=== PATIENT | female | born 1990 | race American Indian/Alaskan Native ===

== ENCOUNTER 2017-09-12 12:43 | Emergency (ER) | payer OTHER ==
[2017-09-12 13:19] VITALS: BP 134/83
[2017-09-12 14:06] LABS: Basophils % (Auto) 0.4 % (0.0-1.8); Eosinophils % (Auto) 4.2 % (0.0-4.3); Hematocrit 36.7 % (30.3-42.9); Hemoglobin 12.2 gm/dl (10.1-14.3); Mean Corpuscular HGB Conc 33 % (30-34); Mean Corpuscular Hemoglobin 29 pg (28-32); Mean Corpuscular Volume 87 fl (79-97); Platelet Count 296 K/mm3 (140-440); Red Blood Count 4.24 M/mm3 (3.65-5.03); Red Cell Distribution Width 15.7 % (13.2-15.2); White Blood Count 7.6 K/mm3 (4.5-11.0)
[2017-09-12] MEDS ORDERED: MOTRIN PO ONE (14:32)
[2017-09-12] MEDS ORDERED: KEFLEX PO ONE (14:33)
[2017-09-12] MEDS ORDERED: TYLENOL PO ONE (14:33)
--- NOTE | 2017-09-12 15:29 | Emergency Department Report ---
ED General Adult HPI - General Chief complaint: Skin/Abscess/Foreign Body Stated complaint: INSECT BITE LEFT LEG Time Seen by Provider: 09/12/17 14:07 Source: patient Mode of arrival: Ambulatory Limitations: No Limitations - History of Present Illness Initial comments: She is a 27-year-old female no significant past history who presents with left leg pain. Has been going on for the last 3 days. Patient states pain is a 7 out of 10 walking makes it worse and nothing makes it better. As an achy type of pain that does not radiate. She noticed that the pain occurred when she woke up and there is a red area with no swelling but tenderness to palpation. Patient denies having any fevers or chills any nausea or vomiting. Patient denies any trauma to the area but she states before the night it happened she was scratching her leg a lot. Patient states the rash hasn't gotten progressively worse and there is no fluid or abscess from the rash. Severity scale (0 -10): 7 - Related Data Previous Rx's Medication Instructions Recorded Last Taken Type Azithromycin [Zmax] 2 gm PO ONCE #60 ml 11/24/15 Unknown Rx Brompheniramine/Pseudoephed/Dm 10 ml PO Q4HR PRN #120 syrup 11/24/15 Unknown Rx [Bromfed Dm Cough Syrup] Ibuprofen [Motrin 800 MG tab] 800 mg PO Q8HR PRN #30 tablet 11/24/15 Unknown Rx Cephalexin [Keflex] 500 mg PO Q12HR #10 cap 09/12/17 Unknown Rx Diclofenac Sodium [Voltaren] 100 gm TP Q6HR #1 gel..gram. 09/12/17 Unknown Rx Allergies Allergy/AdvReac Type Severity Reaction Status Date / Time No Known Allergies Allergy Verified 09/12/17 13:11 ED Review of Systems ROS: Stated complaint: INSECT BITE LEFT LEG Other details as noted in HPI Constitutional: denies: chills, fever Eyes: denies: eye pain, eye discharge, vision change ENT: denies: ear pain, throat pain Respiratory: denies: cough, shortness of breath, wheezing Cardiovascular: denies: chest pain, palpitations Endocrine: no symptoms reported Gastrointestinal: denies: abdominal pain, nausea, diarrhea Genitourinary: denies: urgency, dysuria, discharge Musculoskeletal: denies: back pain, joint swelling, arthralgia Skin: as per HPI, rash. denies: lesions Neurological: denies: headache, weakness, paresthesias Psychiatric: denies: anxiety, depression Hematological/Lymphatic: denies: easy bleeding, easy bruising ED Past Medical Hx - Past Medical History Previous Medical History?: Yes Hx Asthma: Yes Additional medical history: OBESITY - Surgical History Past Surgical History?: Yes Hx Cholecystectomy: Yes - Social History Smoking Status: Never Smoker Substance Use Type: None - Medications Home Medications: Home Medications Medication Instructions Recorded Confirmed Last Taken Type Azithromycin [Zmax] 2 gm PO ONCE #60 ml 11/24/15 Unknown Rx Brompheniramine/Pseudoephed/Dm 10 ml PO Q4HR PRN #120 syrup 11/24/15 Unknown Rx [Bromfed Dm Cough Syrup] Ibuprofen [Motrin 800 MG tab] 800 mg PO Q8HR PRN #30 tablet 11/24/15 Unknown Rx Cephalexin [Keflex] 500 mg PO Q12HR #10 cap 09/12/17 Unknown Rx Diclofenac Sodium [Voltaren] 100 gm TP Q6HR #1 gel..gram. 09/12/17 Unknown Rx ED Physical Exam - General Limitations: No Limitations General appearance: alert, in no apparent distress - Head Head exam: Present: atraumatic, normocephalic - Eye Eye exam: Present: normal appearance - ENT ENT exam: Present: mucous membranes moist - Neck Neck exam: Present: normal inspection - Respiratory Respiratory exam: Present: normal lung sounds bilaterally. Absent: respiratory distress - Cardiovascular Cardiovascular Exam: Present: regular rate, normal rhythm. Absent: systolic murmur, diastolic murmur, rubs, gallop - GI/Abdominal GI/Abdominal exam: Present: soft, normal bowel sounds - Extremities Exam Extremities exam: Present: other (area of erythema 3 cm x 4 cm no crepitus no pain out of proprition to palpation ) - Back Exam Back exam: Present: normal inspection - Neurological Exam Neurological exam: Present: alert, oriented X3 - Psychiatric Psychiatric exam: Present: normal affect, normal mood - Skin Skin exam: Present: warm, dry, intact, normal color. Absent: rash ED Course Vital Signs 09/12/17 13:11 Temperature 98 F Pulse Rate 95 H Respiratory 16 Rate Blood Pressure 134/83 O2 Sat by Pulse 98 Oximetry ED Medical Decision Making - Lab Data Result diagrams: 09/12/17 13:38 Lab Results 09/12/17 09/12/17 Range/Units 13:35 13:38 WBC 7.6 (4.5-11.0) K/mm3 RBC 4.24 (3.65-5.03) M/mm3 Hgb 12.2 (10.1-14.3) gm/dl Hct 36.7 (30.3-42.9) % MCV 87 (79-97) fl MCH 29 (28-32) pg MCHC 33 (30-34) % RDW 15.7 H (13.2-15.2) % Plt Count 296 (140-440) K/mm3 Lymph % (Auto) 19.4 (13.4-35.0) % [place] % (Auto) 5.8 (0.0-7.3) % Eos % (Auto) 4.2 (0.0-4.3) % Baso % (Auto) 0.4 (0.0-1.8) % Lymph # 1.5 (1.2-5.4) K/mm3 [place] # 0.4 (0.0-0.8) K/mm3 Eos # 0.3 (0.0-0.4) K/mm3 Baso # 0.0 (0.0-0.1) K/mm3 Seg Neutrophils % 70.2 H (40.0-70.0) % Seg Neutrophils # 5.3 (1.8-7.7) K/mm3 Urine HCG, Qual Positive A (Negative) - Medical Decision Making Cdx: Cellulitis ddx: Erypsisleas, contact dermatitis I will get cbc and urine test. I will give patient oral pain medication and antibiotics. As the diagnosis of her Lee discussed with patient return precautions come back to emergency department and to take her Keflex as prescribed. Also gave patient crutches for go back and he worked as well. Patient recently plan additional verbal discharge for history Discussed plan with patient to send home Patient also has had a postive test ordered in triage. Critical care attestation.: If time is entered above; I have spent that time in minutes in the direct care of this critically ill patient, excluding procedure time. ED Disposition Clinical Impression: Erysipelas of lower extremity Qualifiers: Weeks of gestation: unspecified Qualified Code(s): Z34.90 - Encounter for supervision of normal , unspecified, unspecified trimester Disposition: DC-01 TO HOME OR SELFCARE Is pt being admited?: No Does the pt Need Aspirin: No Condition: Stable Instructions: Cellulitis (ED) Prescriptions: Cephalexin [Keflex] 500 mg PO Q12HR #10 cap Diclofenac Sodium [Voltaren] 100 gm TP Q6HR #1 gel..gram. Referrals: COREY LEBRON MD [Primary Care Provider] - 3-5 Days Forms: Work/School Release Form(ED)
== END 2017-09-12 15:50 | disposition home or self-care (01) ==
LOC: ED 12:43
DX: Z34.90 Encounter for supervision of normal pregnancy, unspecified, unspecified trimester (principal); A46 Erysipelas
CPT/HCPCS: 36415; 81025; 85025; 99283

== ENCOUNTER 2017-09-20 14:44 | Emergency (ER) | payer SELFPAY ==
[2017-09-20 15:02] VITALS: BP 108/62
[2017-09-20 17:28] LABS: Bilirubin,Urine NEG (Negative); Blood,Urine NEG (Negative); Color,Urine Yellow (Yellow); Hyaline Casts,Urine 1 /LPF; Mucus,Urine FEW /HPF; Nitrite,Urine NEG (Negative); Protein,Urine <15 mg/dL mg/dL (Negative); Urobilinogen,Urine < 2.0 mg/dL (<2.0)
== END 2017-09-21 00:30 | disposition left against medical advice (07) ==
LOC: ED 14:44
DX: R10.9 Unspecified abdominal pain (principal); Z53.21 Procedure and treatment not carried out due to patient leaving prior to being seen by health care provider
CPT/HCPCS: 81001

== ENCOUNTER 2017-10-12 17:36 | Outpatient (CLI) | payer SELFPAY ==
[2017-10-12 19:57] LABS: Hematocrit 34.6 % (30.3-42.9); Hemoglobin 12.2 gm/dl (10.1-14.3); Mean Corpuscular HGB Conc 35 % (30-34); Mean Corpuscular Hemoglobin 31 pg (28-32); Mean Corpuscular Volume 87 fl (79-97); Platelet Count 285 K/mm3 (140-440); Red Blood Count 3.97 M/mm3 (3.65-5.03); Red Cell Distribution Width 15.3 % (13.2-15.2)
--- NOTE | 2017-10-12 21:15 | Ultrasound Report ---
FINAL REPORT EXAM: US OB > = 14 WEEKS FETUS HISTORY: cramps, bleeding TECHNIQUE: Obstetrical sonographic imaging Comparison: None FINDINGS: Images demonstrate single live intrauterine gestation in cephalic presentation. Subjective amniotic fluid volume is within normal limits. Posterior placenta without previa, grade 0. heart rate measures 141 beats per minute. Cervical length measures 2.5 centimeters. anatomic survey not performed. Estimated gestational age as follows: Biparietal diameter 21 weeks 4 days Head circumference 21 weeks 5 days Abdominal circumference 20 weeks 5 days Femur length 21 weeks 4 days Average sonographic gestational age is 21 weeks 3 days with estimated due date by today's exam 02/19/2018. HC/AC 1.27. Cephalic index 76.3. Estimated weight 403 grams +/-60 grams. IMPRESSION: Single live intrauterine gestation at 21 weeks 3 days with estimated due date of 02/19/2018. Posterior placenta without previa. Subjectively normal amniotic fluid. Cervical length measures 2.5 centimeters. The cervix is closed.
[2017-10-13] MEDS ORDERED: LACTATED RINGERS 1,000 ML ONE (05:44)
[2017-10-13] MEDS ORDERED: LACTATED RINGERS 1,000 ML IV ONE (07:02)
[2017-10-13] MEDS ORDERED: LACTATED RINGERS 1,000 ML IV SCH (08:00)
[2017-10-13 08:19] VITALS: BP 108/59
[2017-10-13 09:08] LABS: Bilirubin,Urine NEG (Negative); Blood,Urine NEG (Negative); Color,Urine Amber (Yellow); Mucus,Urine 3+ /HPF; Nitrite,Urine NEG (Negative)
== END 2017-10-13 11:00 | disposition home or self-care (01) ==
LOC: ED 17:36 → TRG 17:36
PROVIDERS: ATTEND Obstetrics & Gynecology
DX: O99.342 Other mental disorders complicating pregnancy, second trimester (principal); F41.9 Anxiety disorder, unspecified; Z3A.21 21 weeks gestation of pregnancy
CPT/HCPCS: 36415; 59025; 76805; 81001; 84702; 85027; 86900; 86901; 87400; 96360; 96361; J7120

== ENCOUNTER 2018-02-13 14:31 | Inpatient (IN) | payer MEDICAID ==
[2018-02-13] MEDS ORDERED: APRESOLINE ONE (15:29)
[2018-02-13] MEDS ORDERED: LACTATED RINGERS 1,000 ML ONE (15:29)
[2018-02-13] MEDS ORDERED: MAGNESIUM SULFATE 4GM/100ML 4 GM/100 ML BAG IV ONE ×2 (15:32→16:17)
[2018-02-13] MEDS ORDERED: MAGNESIUM SULFATE 40GM/1000ML 40 GM/1,000 ML BAG IV ONE (15:32)
[2018-02-13] MEDS: LACTATED RINGERS 1,000 ML IV SCH (15:41)
[2018-02-13] MEDS ORDERED: MINERAL OIL PO PRN (16:14)
[2018-02-13] MEDS ORDERED: XYLOCAINE 2% INFILTRATI ONE (16:14)
[2018-02-13] MEDS ORDERED: ePHEDrine SULFATE IV PRN (16:14)
[2018-02-13] MEDS ORDERED: ZOFRAN IV PRN (16:14)
[2018-02-13] MEDS ORDERED: BRETHINE SUB-Q PRN (16:14)
[2018-02-13] MEDS ORDERED: APRESOLINE IV PRN (16:17)
[2018-02-13] MEDS: APRESOLINE IV PRN ×3 (16:30→20:38)
--- NOTE | 2018-02-13 16:30 | History and Physical Report ---
<MALA CORNELL - Last Filed: 02/13/18 17:11> History of Present Illness Date of examination: 02/13/18 (pt presented to Triage with c/o pain and worst SANCHEZ ever started today) History of present illness: EDC Confirmation: 02/19/2018 Gestational Age: 32 6/7 weeks Past History : 1 Living Children: 0 Para: 0 Past Medical History: Negative Past Medical History Past Surgical History: Negative Past Surgical History Past Medical History Surgery (Non-glass carrier): Negative Past Surgical History Abnormal PAP: negative DEJON Exposure: negative Infertility: negative Uterine Anomaly: negative Uterine Surgery (not C/S): negative Other Gynecologic Problems: negative Infection History Hx of STD: none HIV Risk Eval: low risk Hepatitis B Risk Eval: low risk Personal hx. of genital herpes: no Partner hx. of genital herpes: no Rash, Viral, or Febrile illness since last LMP? no Varicella/Chicken Pox Status: Immunized TB Risk: no Genetic History Congenital Heart Defect: Mom: no Dad: no Jey Disease: Mom: no Dad: no Thalassemia Mom: no Dad: no Neural Tube Defect Mom: no Dad: no Down's Syndrome Mom: no Dad: no Misael-Sachs Mom: no Dad: no Sickle Cell Disease/Trait Mom: no Dad: no Hemophilia Mom: no Dad: no Muscular Dystrophy Mom: no Dad: no Cystic Fibrosis Mom: no Dad: no [place] Chorea Mom: no Dad: no Mental Retardation Mom: no Dad: no Fragile X Mom: no Dad: no Other Genetic/Chromosomal Disorder Mom: no Dad: no Child w/other defect Mom: no Dad: no Enviromental Exposures Xray Exposure: no Medication, drug, or alcohol use since LMP: no Chemical/Other Exposure: no Exposure to Cat Liter: no Hx of Parvovirus (Fifth Disease): no Occupational Exposure to Children: none Active Medications (reviewed today): None Current Allergies (reviewed today): * LATEX (Critical) * SEAFOOD (Critical) Laboratory Results Date/Time Collected: 12/31/2017 Routine Urinalysis Protein: Trace Glucose: Negative Urine HCG: positive Review of Systems General Denies fever, chills, sweats, anorexia, fatigue, weakness, malaise, weight loss and sleep disorder. Denies nausea, vomiting, headache, swelling of legs, abdominal pain, vaginal discharge, vaginal bleeding and contractions. Denies vaginal discharge, incontinence, dysuria, hematuria, urinary frequency, amenorrhea, menorrhagia, abnormal vaginal bleeding, pelvic pain, genital sores, decreased libido, painful periods, painful sex, urinary urgency, hot flashes, vaginal dryness, vaginal itching and vaginal odor. CV Denies chest pains, palpitations, syncope, dyspnea on exertion, orthopnea, PND and peripheral edema. Resp Denies cough, dyspnea at rest, excessive sputum, hemoptysis, wheezing and pleurisy. GI Denies nausea, vomiting, diarrhea, constipation, change in bowel habits, abdominal pain, melena, hematochezia, jaundice, gas/bloating, indigestion/ heartburn, dysphagia and odynophagia. Endo Denies cold intolerance, heat intolerance, polydipsia, polyphagia, polyuria and unusual weight change. Breast Denies left breast lump, right breast lump, nipple discharge, bloody discharge from nipple, breast pain, abnormal mammogram and breast enlargement. MS Denies back pain, joint pain, joint swelling, muscle cramps, muscle weakness, stiffness, arthritis, sciatica, restless legs, leg pain at night and leg pain with exertion. Derm Denies rash, itching, dryness and suspicious lesions. Neuro Denies paralysis, paresthesias, headache, seizures, tremors, vertigo, transient blindness, frequent falls, frequent headaches and difficulty walking. Psych Denies depression, anxiety, irritability and mood swings. Eyes Denies blurring, diplopia, irritation, discharge, vision loss, eye pain and photophobia. ENT Denies earache, ear discharge, tinnitus, decreased hearing, nasal congestion, nosebleeds, sore throat and hoarseness. Allergy Denies urticaria, allergic rash, hay fever and recurrent infections. Heme Denies abnormal bruising, bleeding and enlarged lymph nodes. PHYSICAL EXAM HEENT: PERRLA, normal conjunctiva, external nose and nasal mucosa normal, oropharynx clear Neck/Thyroid: supple, thyroid normal Skin no significant abnormal lesions or rashes Chest: respiratory effort normal, clear to auscultation Breasts: normal without skin changes or masses CV: regular, normal S1-S2, no murmur, no rub, no gallop Abdomen: normal bowel sounds, soft, nontender, no HSM Musculoskeletal: grossly normal ROM in joints, no joint tenderness or muscle weakness Neuro: grossly normal DTRs, sensation, strength, cranial nerves Extremities: no clubbing, cyanosis, or edema [employer] Exams Vulva/Vagina: No lesions, normal BUS, normal rugae Cervix: No lesions; no cervical motion tenderness Uterus: normal size and position, midline, mobile Fundal Ht: 31 Adnexae: no masses or tenderness Rectovaginal: no masses or tenderness Past History - Obstetrical History Expected Date of Delivery: 02/19/18 Actual Gestation: 39 Week(s) 1 Day(s) : 1 Para: 0 Hx # Term Pregnancies: 0 Number of Pregnancies: 0 Spontaneous Abortions: 0 Induced : 0 Number of Living Children: 0 Medications and Allergies Allergies Allergy/AdvReac Type Severity Reaction Status Date / Time No Known Allergies Allergy Verified 10/13/17 06:56 Home Medications Medication Instructions Recorded Confirmed Last Taken Type Azithromycin [Zmax] 2 gm PO ONCE #60 ml 11/24/15 Unknown Rx Brompheniramine/Pseudoephed/Dm 10 ml PO Q4HR PRN #120 syrup 11/24/15 Unknown Rx [Bromfed Dm Cough Syrup] Ibuprofen [Motrin 800 MG tab] 800 mg PO Q8HR PRN #30 tablet 11/24/15 Unknown Rx Cephalexin [Keflex] 500 mg PO Q12HR #10 cap 09/12/17 Unknown Rx Diclofenac Sodium [Voltaren] 100 gm TP Q6HR #1 gel..gram. 09/12/17 Unknown Rx Active Meds: Active Medications Ephedrine Sulfate (Ephedrine Sulfate) 10 mg IV Q2M PRN PRN Reason: Hypotension Fentanyl (Sublimaze) 100 mcg IV Q2H PRN PRN Reason: Labor Pain Hydralazine HCl (Apresoline) 5 mg IV Q30MIN PRN PRN Reason: Hypertension Lactated Ringer's (Lactated Ringers) 1,000 mls @ 125 mls/hr IV DIRECT JOSE Magnesium Sulfate (Magnesium Sulfate 40gm/1000ml) 40 gm in 1,000 mls @ 50 mls/ hr IV DIRECT JOSE Magnesium Sulfate (Magnesium Sulfate 4gm/100ml) 4 gm in 100 mls @ 300 mls/hr IV ONCE ONE Stop: 02/13/18 16:36 Oxytocin/Sodium Chloride (Pitocin/Ns 20 Unit/1000ml Drip) 20 units in 1,000 mls @ 125 mls/hr IV DIRECT JOSE Mineral Oil (Mineral Oil) 30 ml PO QHS PRN PRN Reason: Constipation Ondansetron HCl (Zofran) 4 mg IV Q8H PRN PRN Reason: Nausea And Vomiting Terbutaline Sulfate (Brethine) 0.25 mg SUB-Q ONCE PRN PRN Reason: Hyperstimulation/Hypertonicity - Vital Signs Vital signs: Vital Signs Pulse BP 82 192/111 02/13/18 15:34 02/13/18 15:34 Temp Pulse Resp BP Pulse Ox 86 175/98 02/13/18 16:22 02/13/18 16:22 - Physical Exam Breasts: Positive: deferred Cardiovascular: Regular rate, Normal S1, Normal S2 Lungs: Positive: Normal air movement Abdomen: Positive: normal appearance, soft, normal bowel sounds. Negative: distention, tenderness Genitourinary (Female): Positive: normal external genitalia, normal perenium Vulva: both: normal Vagina: Positive: normal moisture. Negative: discharge Cervix: Negative: lesion, discharge Uterus: Positive: normal size, normal contour Adnexa: both: normal Anus/Rectum: Positive: normal perianal skin, heme negative. Negative: rectal mass, hemorrhoids Extremities: Positive: edema Deep Tendon Reflex Grade: Normal but brisk +3 - Obstetrical Uterine Contraction Monitor Mode: External Cervical Dilatation: 1 (per ) Cervical Effacement Percentage: 50 station: -2 Uterine Contraction Pattern: Irregular Uterine Tone Measurement Phase: Resting Uterine Contraction Intensity: Mild Results Result Diagrams: 02/13/18 16:10 02/13/18 16:10 All other labs normal. HBsAg Screen "Result Below..." Negative *1 RESULT: Confirm. indicated Tests: (2) HBsAg Confirmation ([id number]) ! HBsAg Confirmation Negative *2 Final result obtained by neutralization. Tests: (3) Profile I ([id number]) RPR Non Reactive Non Reactive *3 Rubella Antibodies, IgG 1.15 index Immune >0.99 *4 Non-immune <0.90 Equivocal 0.90 - 0.99 Immune >0.99 ABO Grouping A *5 Rh Factor Positive *6 Please note: Prior records for this patient's ABO / Rh type are not available for additional verification. Antibody Screen Negative Negative *7 WBC 6.6 x10E3/uL 3.4-10.8 *8 RBC 3.90 x10E6/uL 3.77-5.28 *9 Hemoglobin 11.8 g/dL 11.1-15.9 *10 Hematocrit 34.5 % 34.0-46.6 *11 MCV 89 fL 79-97 *12 MCH 30.3 pg 26.6-33.0 *13 MCHC 34.2 g/dL 31.5-35.7 *14 RDW 15.4 % 12.3-15.4 *15 Platelets 262 x10E3/uL 150-379 *16 Neutrophils 64 % Not Estab. *17 Lymphs 26 % Not Estab. *18 Monocytes 7 % Not Estab. *19 Eos 3 % Not Estab. *20 Basos 0 % Not Estab. *21 ! Immature Cells <No Reported Value> *22 Neutrophils (Absolute) 4.2 x10E3/uL 1.4-7.0 *23 Lymphs (Absolute) 1.7 x10E3/uL 0.7-3.1 *24 Monocytes(Absolute) 0.4 x10E3/uL 0.1-0.9 *25 Eos (Absolute) 0.2 x10E3/uL 0.0-0.4 *26 Baso (Absolute) 0.0 x10E3/uL 0.0-0.2 *27 ! Immature Granulocytes 0 % Not Estab. *28 ! Immature Grans (Abs) 0.0 x10E3/uL 0.0-0.1 *29 ! NRBC <No Reported Value> *30 Hematology Comments: <No Reported Value> *31 Tests: (4) Panel [id number] ([id number]) HIV Screen 4th Generation wRfx [A] Reactive Non Reactive *32 See additional algorithm testing elsewhere in this report. Tests: (5) HIV 1/2 Ab Differentiation ([id number]) ! HIV 1 Ab Negative Negative *33 ! HIV 2 Ab [A] Indeterminate Negative *34 ! Interpretation: [A] HIV-2 Indet. *35 See RNA Reflex. Tests: (6) RNA Qualitative ([id number]) ! HIV 1 RNA Qualitative Negative Negative *36 Negative for HIV-1 RNA ! Final Interpretation GEENPN *37 HIV antibodies were not confirmed and HIV 1 RNA was not detected. No laboratory evidence of HIV 1 infection. Follow-up testing for HIV 2 should be performed if clinically indicated. Tests: (7) Gest. Diabetes 1-Hr Screen ([id number]) ! Gestational Diabetes Screen 138 mg/dL 65-139 *38 According to ADA, a glucose threshold of >139 mg/dL after 50-gram load identifies approximately 80% of women with gestational diabetes mellitus, while the sensitivity is further increased to approximately 90% by a threshold of >129 mg/dL. Tests: (8) HCV Ab w/Rflx to Verification ([id number]) ! HCV Ab <0.1 s/co ratio 0.0-0.9 *39 Tests: (9) Comment: ([id number]) ! Comment: SPRCS *40 Non reactive HCV antibody screen is consistent with no HCV infection, unless recent infection is suspected or other evidence exists to indicate HCV infection. Tests: (10) Urine Culture, Routine ([id number]) Urine Culture, Routine Final report *41 Tests: (11) Result ([id number]) ! Result 1 MUG *42 Mixed urogenital dolly 10,000-25,000 colony forming units per mL Assessment and Plan - Patient Problems (1) IUFD (intrauterine ) Onset Date: ~02/13/18 Current Visit: Yes Status: Acute Plan to address problem: Demise confirmed by US. Pt states she last felt baby move yesterday. After some time for processing Pt has requested to try vaginal delivery. Will place Cervidil tonight. (2) Severe pre-eclampsia Onset Date: ~02/13/18 Current Visit: Yes Status: Acute Qualifiers: Trimester: third trimester Qualified Code(s): O14.13 - Severe pre-eclampsia , third trimester Plan to address problem: BP on admission >200/110 Severe SANCHEZ with onset just today DTR 3+ @ BS. Hydralizine given X 2. MGSO4 started 4gm load then 2gm/hr Seizure precautions All findings explained to pt and family by . (3) Insufficient care in third trimester Onset Date: ~02/13/18 Current Visit: Yes Status: Acute Plan to address problem: Pt presented late for care @ 32weeks. Her OB labs demonstrated a negative HIV1 and indeterminate HIV2 Re-testing has stated HIV2+. Pt is aware but family is not. Pt had a mildly elevated BP at last visit but no protein. We had discussed her HIV status. Will move forward with IOL for IUFD @ term. Cervidil ordered for tonight. All questions addressed and answered. Dr. Murillo aware and has spoken with the pt. <PAULINA MURILLO - Last Filed: 02/13/18 17:16> History of Present Illness Chief complaint: headache resolving with BP being lowered and pain meds Medications and Allergies Active Meds: Active Medications Dinoprostone (Cervidil) 10 mg VG ONCE ONE Stop: 02/13/18 17:31 Ephedrine Sulfate (Ephedrine Sulfate) 10 mg IV Q2M PRN PRN Reason: Hypotension Fentanyl (Sublimaze) 100 mcg IV Q2H PRN PRN Reason: Labor Pain Hydralazine HCl (Apresoline) 5 mg IV Q30MIN PRN PRN Reason: HTN SYS>=160 PAWAN>=105 Last Admin: 02/13/18 16:30 Dose: 5 mg Lactated Ringer's (Lactated Ringers) 1,000 mls @ 125 mls/hr IV DIRECT JOSE Last Admin: 02/13/18 15:41 Dose: 125 mls/hr Magnesium Sulfate (Magnesium Sulfate 40gm/1000ml) 40 gm in 1,000 mls @ 50 mls/ hr IV DIRECT JOSE Last Admin: 02/13/18 17:07 Dose: 2 gm/hr, 50 mls/hr Oxytocin/Sodium Chloride (Pitocin/Ns 20 Unit/1000ml Drip) 20 units in 1,000 mls @ 125 mls/hr IV DIRECT JOSE Mineral Oil (Mineral Oil) 30 ml PO QHS PRN PRN Reason: Constipation Ondansetron HCl (Zofran) 4 mg IV Q8H PRN PRN Reason: Nausea And Vomiting Terbutaline Sulfate (Brethine) 0.25 mg SUB-Q ONCE PRN PRN Reason: Hyperstimulation/Hypertonicity - Vital Signs Vital signs: Vital Signs Pulse BP 82 192/111 02/13/18 15:34 02/13/18 15:34 Temp Pulse Resp BP Pulse Ox 100 H 146/88 02/13/18 17:17 02/13/18 17:17 Results Result Diagrams: 02/13/18 16:10 02/13/18 16:10 Abnormal lab results 02/13/18 Range/Units 16:10 Creatinine 0.5 L (0.7-1.2) mg/dL AST 47 H (5-40) units/L Lactate Dehydrogenase 420 H (91-180) units/L All other labs normal.
[2018-02-13 16:46] LABS: Hematocrit TNR % (30.3-42.9); Hemoglobin TNR gm/dl (10.1-14.3); Mean Corpuscular HGB Conc TNR % (30-34); Mean Corpuscular Hemoglobin TNR pg (28-32); Mean Corpuscular Volume TNR fl (79-97); Platelet Count TNR K/mm3 (140-440); Red Blood Count TNR M/mm3 (3.65-5.03); Red Cell Distribution Width TNR % (13.2-15.2)
[2018-02-13 16:47] LABS: Mean Platelet Volume TNR fl (6-12)
[2018-02-13 16:58] LABS: Alanine Aminotransferase 32 units/L (7-56); Uric Acid 5.4 mg/dL (3.5-7.6)
[2018-02-13] MEDS ORDERED: PITOCin/NS 20 UNIT/1000ML DRIP 20 UNITS/1,000 ML BAG IV SCH (17:00)
[2018-02-13] MEDS: MAGNESIUM SULFATE 40GM/1000ML 40 GM/1,000 ML BAG IV SCH (17:07)
--- NOTE | 2018-02-13 17:15 | Event Note ---
Date: 02/13/18 Pt presents with no FHTs , severe headache and abdominal pain /contractions. EXam shows she is not in labor. Bedside sono by provider as official sono confims IUFD. Pt last fetl FM last night. Headache and pain started today at 1pm. She and her support (mother and aunt) are aware of IUFD. I presented pt with option of MATI with serial IOL that I expressed is the least invasive and best if possible vs c/s. She desires MATI with serial IOL with the understanding that if her condition worsens or it fails she will need hysterotomy for delivery of fetus. Pt also made aware by CNMW that she is newly diagnosed with HIV as her HIV2 testing with 35wk labs was negative and HIV testing initally was negative. Pt does not want this discussed in font of family but is ok with plan of care regarding IUFD management being discussed. Support offered to pt and family. All questions were addressed and answered.
--- NOTE | 2018-02-13 17:21 | Ultrasound Report ---
FINAL REPORT EXAM: US OB LIMITED HISTORY: HEART TONES TECHNIQUE: Limited obstetrical ultrasound. Dr. Murillo Observed ultrasound during real-time. PRIORS: None. FINDINGS: LMP: 05/15/2017 clinical Age: 39 w 1d LMP EDC 02/19/2018 Presentation: Cephalic Placental location: Fundal and left lateral with no evidence for previa. Placental grade: 3 Cardiac motion: No visualized heart rate using M-mode doppler IMPRESSION: Single intrauterine with an approximate age of 39 weeks 1 days. No heart rates are monitored during this exam which is concerning for demise.
[2018-02-13] MEDS ORDERED: CERVIDIL VG ONE (17:30)
[2018-02-13] MEDS: SUBLIMAZE IV PRN ×2 (18:00→22:09)
[2018-02-13 18:06] LABS: Basophils % (Auto) 0.4 % (0.0-1.8); Eosinophils # (Auto) 0.1 K/mm3 (0.0-0.4); Lymphocytes % (Auto) 19.5 % (13.4-35.0); Mean Corpuscular HGB Conc 36 % (30-34); Mean Corpuscular Hemoglobin 31 pg (28-32); Mean Corpuscular Volume 86 fl (79-97); Monocytes # (Auto) 0.6 K/mm3 (0.0-0.8); Monocytes % (Auto) 5.7 % (0.0-7.3); Platelet Count 213 K/mm3 (140-440); Red Blood Count 4.86 M/mm3 (3.65-5.03); Red Cell Distribution Width 14.6 % (13.2-15.2)
--- NOTE | 2018-02-13 18:58 | Event Note ---
Date: 02/13/18 Review of pt final HIV 1 and 2 results show that both are negative. New HIV 2 result just resulted. Previously the result was not present on the document when read as positive. Pt will be informed when family no longer at the bedside by provider. BPs con't to improve.
[2018-02-13 19:01] LABS: Amorphous Crystals,Urine Few; Bilirubin,Urine NEG (Negative); Blood,Urine NEG (Negative); Color,Urine Yellow (Yellow); Mucus,Urine 1+ /HPF; Protein,Urine >500 mg/dL (Negative); Urobilinogen,Urine < 2.0 mg/dL (<2.0)
[2018-02-14] MEDS: LACTATED RINGERS 1,000 ML IV SCH ×2 (05:01→17:55)
[2018-02-14] MEDS: SUBLIMAZE IV PRN (05:01)
--- NOTE | 2018-02-14 06:21 | Progress Note ---
Assessment and Plan - Patient Problems (1) 39 weeks gestation of Current Visit: Yes Status: Acute (2) IUFD (intrauterine ) Onset Date: ~02/13/18 Current Visit: Yes Status: Acute (3) Severe pre-eclampsia Onset Date: ~02/13/18 Current Visit: Yes Status: Acute Qualifiers: Trimester: third trimester Qualified Code(s): O14.13 - Severe pre-eclampsia , third trimester Plan to address problem: -con't serial IOL -allow clear diet and bedside pericare Subjective - Subjective Date of service: 02/14/18 Principal diagnosis: 1)IUFD 2)38+ wks 3)severe pre E Interval history: Pt is comfortable just c/o hotflushes with the MgSO4. cervidil pulled and cx still closed and thick.I reminded pt and support person about serial IOL and that it does take time for the delivery to occur. She expressed understanding. She was also advised that labs would be repeated this am. Again she expressed understanding. Patient reports: new complaints Objective - Vital Signs Vital Signs: Vital Signs - 12hr 02/13/18 02/13/18 02/13/18 18:22 18:37 18:52 Temperature Pulse Rate 90 81 88 Respiratory Rate Blood Pressure 149/90 153/93 156/100 02/13/18 02/13/18 02/13/18 19:08 19:15 19:22 Temperature 97.8 F Pulse Rate 84 88 Respiratory 18 Rate Blood Pressure 161/94 167/98 02/13/18 02/13/18 02/13/18 19:43 19:59 20:05 Temperature Pulse Rate 92 H 95 H 95 H Respiratory Rate Blood Pressure 161/94 171/98 171/97 02/13/18 02/13/18 02/13/18 20:13 20:30 20:38 Temperature Pulse Rate 90 103 H 103 H Respiratory Rate Blood Pressure 175/106 172/99 172/99 02/13/18 02/13/18 02/13/18 20:43 21:15 21:44 Temperature Pulse Rate 109 H 109 H 105 H Respiratory Rate Blood Pressure 163/85 155/88 144/79 02/13/18 02/13/18 02/13/18 22:45 23:15 23:44 Temperature Pulse Rate 88 88 90 Respiratory Rate Blood Pressure 132/73 140/78 149/80 02/13/18 02/14/18 02/14/18 23:54 02:45 03:03 Temperature 97.8 F 99.3 F Pulse Rate 109 H Respiratory 18 16 Rate Blood Pressure 141/83 02/14/18 02/14/18 02/14/18 03:15 03:45 04:15 Temperature Pulse Rate 96 H 95 H 95 H Respiratory Rate Blood Pressure 142/77 137/74 135/65 02/14/18 02/14/18 02/14/18 04:46 05:15 05:44 Temperature Pulse Rate 92 H 101 H 103 H Respiratory Rate Blood Pressure 143/73 109/58 123/69 02/14/18 06:15 Temperature Pulse Rate 91 H Respiratory Rate Blood Pressure 168/100 - Exam Cervical Dilatation: 0 Cervical Effacement Percentage: 50 station: -2 Uterine Contraction Pattern: Irregular Uterine Tone Measurement Phase: Resting Uterine Contraction Intensity: Mild - Labs Labs: Abnormal Labs 02/13/18 02/13/18 02/13/18 16:10 17:08 17:10 Hgb 15.0 H MCHC 36 H Seg Neutrophils % 73.4 H Creatinine 0.5 L Magnesium 2.90 H AST 47 H Lactate Dehydrogenase 420 H 02/14/18 00:34 Hgb MCHC Seg Neutrophils % Creatinine Magnesium 4.30 H AST Lactate Dehydrogenase Laboratory Results - last 24 hr 02/13/18 02/13/18 02/13/18 15:32 16:10 16:10 WBC TNR RBC TNR Hgb TNR Hct TNR MCV TNR MCH TNR MCHC TNR RDW TNR Plt Count TNR Lymph % (Auto) [place] % (Auto) Eos % (Auto) Baso % (Auto) Lymph # [place] # Eos # Baso # Seg Neutrophils % Seg Neutrophils # Creatinine 0.5 L Estimated GFR > 60 Uric Acid 5.4 Magnesium AST 47 H ALT 32 Lactate Dehydrogenase 420 H Urine Color Yellow Urine Turbidity Clear Urine pH 7.0 Ur Specific [place] 1.015 Urine Protein >500 Urine Glucose (UA) Neg Urine Ketones 20 Urine Blood Neg Urine Nitrite Neg Urine Bilirubin Neg Urine Urobilinogen < 2.0 Ur Leukocyte Esterase Neg Urine WBC (Auto) 3.0 Urine RBC (Auto) 4.0 U Epithel Cells (Auto) 1.0 Amorphous Crystals Few Urine Mucus 1+ Blood Type Antibody Screen 02/13/18 02/13/18 02/13/18 16:10 17:08 17:10 WBC 10.1 RBC 4.86 Hgb 15.0 H Hct 42.0 MCV 86 MCH 31 MCHC 36 H RDW 14.6 Plt Count 213 Lymph % (Auto) 19.5 [place] % (Auto) 5.7 Eos % (Auto) 1.0 Baso % (Auto) 0.4 Lymph # 2.0 [place] # 0.6 Eos # 0.1 Baso # 0.0 Seg Neutrophils % 73.4 H Seg Neutrophils # 7.4 Creatinine Estimated GFR Uric Acid Magnesium 2.90 H AST ALT Lactate Dehydrogenase Urine Color Urine Turbidity Urine pH Ur Specific [place] Urine Protein Urine Glucose (UA) Urine Ketones Urine Blood Urine Nitrite Urine Bilirubin Urine Urobilinogen Ur Leukocyte Esterase Urine WBC (Auto) Urine RBC (Auto) U Epithel Cells (Auto) Amorphous Crystals Urine Mucus Blood Type A POSITIVE Antibody Screen Negative 02/14/18 00:34 WBC RBC Hgb Hct MCV MCH MCHC RDW Plt Count Lymph % (Auto) [place] % (Auto) Eos % (Auto) Baso % (Auto) Lymph # [place] # Eos # Baso # Seg Neutrophils % Seg Neutrophils # Creatinine Estimated GFR Uric Acid Magnesium 4.30 H AST ALT Lactate Dehydrogenase Urine Color Urine Turbidity Urine pH Ur Specific [place] Urine Protein Urine Glucose (UA) Urine Ketones Urine Blood Urine Nitrite Urine Bilirubin Urine Urobilinogen Ur Leukocyte Esterase Urine WBC (Auto) Urine RBC (Auto) U Epithel Cells (Auto) Amorphous Crystals Urine Mucus Blood Type Antibody Screen
[2018-02-14 07:22] LABS: Hematocrit 38.3 % (30.3-42.9); Hemoglobin 13.4 gm/dl (10.1-14.3); Mean Corpuscular HGB Conc 35 % (30-34); Mean Corpuscular Hemoglobin 31 pg (28-32); Mean Corpuscular Volume 87 fl (79-97); Platelet Count 150 K/mm3 (140-440); Red Cell Distribution Width 15.1 % (13.2-15.2)
[2018-02-14 07:35] LABS: Alanine Aminotransferase 81 units/L (7-56); Uric Acid 5.6 mg/dL (3.5-7.6)
[2018-02-14] MEDS ORDERED: APRESOLINE IV ONE (08:00)
[2018-02-14] MEDS ORDERED: CERVIDIL VG ONE ×2 (09:00→21:47)
[2018-02-14] MEDS: STADOL IV PRN ×3 (09:15→23:57)
[2018-02-14] MEDS ORDERED: PROCARDIA XL PO SCH (10:00)
[2018-02-14] MEDS: PROCARDIA XL PO SCH (10:22)
--- NOTE | 2018-02-14 20:47 | Progress Note ---
Assessment and Plan - Patient Problems (1) 39 weeks gestation of Current Visit: Yes Status: Acute Plan to address problem: Continue induction (2) IUFD (intrauterine ) Onset Date: ~02/13/18 Current Visit: Yes Status: Acute (3) Insufficient care in third trimester Onset Date: ~02/13/18 Current Visit: Yes Status: Acute (4) Placenta abruptio Current Visit: Yes Status: Acute (5) Severe pre-eclampsia Onset Date: ~02/13/18 Current Visit: Yes Status: Acute Qualifiers: Trimester: third trimester Qualified Code(s): O14.13 - Severe pre-eclampsia , third trimester Subjective - Subjective Date of service: 02/14/18 Principal diagnosis: 1)IUFD 2)38+ wks 3)severe pre E Interval history: Resting in bed with "Aunt" present. Patient easily aroused with appropriate response, declines pelvic exam witn removal of cervidil at this time. Patient reports: new complaints Objective - Vital Signs Vital Signs: Vital Signs - 12hr 02/14/18 02/14/18 02/14/18 09:16 09:45 10:09 Temperature 96.8 F L Pulse Rate 97 H 91 H Respiratory 20 Rate Blood Pressure 140/93 117/65 O2 Sat by Pulse Oximetry 02/14/18 02/14/18 02/14/18 10:14 10:45 11:16 Temperature Pulse Rate 88 82 78 Respiratory Rate Blood Pressure 124/77 133/77 153/89 O2 Sat by Pulse Oximetry 02/14/18 02/14/18 02/14/18 11:45 12:15 12:45 Temperature Pulse Rate 75 83 100 H Respiratory Rate Blood Pressure 127/68 124/68 130/84 O2 Sat by Pulse Oximetry 02/14/18 02/14/18 02/14/18 13:16 13:45 14:15 Temperature Pulse Rate 82 93 H 88 Respiratory Rate Blood Pressure 142/83 138/86 131/78 O2 Sat by Pulse Oximetry 02/14/18 02/14/18 02/14/18 14:28 14:45 15:17 Temperature 97.6 F Pulse Rate 83 102 H Respiratory Rate Blood Pressure 118/70 123/73 O2 Sat by Pulse Oximetry 02/14/18 02/14/18 02/14/18 15:44 16:14 16:41 Temperature 97.8 F Pulse Rate 93 H 92 H Respiratory 22 Rate Blood Pressure 126/72 122/74 O2 Sat by Pulse Oximetry 02/14/18 02/14/18 02/14/18 16:46 16:50 16:55 Temperature Pulse Rate 91 H 91 H 109 H Respiratory Rate Blood Pressure 123/76 O2 Sat by Pulse 98 99 Oximetry 02/14/18 02/14/18 02/14/18 17:00 17:05 17:10 Temperature Pulse Rate 105 H 106 H 103 H Respiratory Rate Blood Pressure O2 Sat by Pulse 99 100 100 Oximetry 02/14/18 02/14/18 02/14/18 17:15 17:20 17:25 Temperature Pulse Rate 104 H 112 H 103 H Respiratory Rate Blood Pressure 147/90 O2 Sat by Pulse 100 100 99 Oximetry 02/14/18 02/14/18 02/14/18 17:30 17:44 18:15 Temperature Pulse Rate 114 H 100 H 97 H Respiratory Rate Blood Pressure 139/85 116/63 O2 Sat by Pulse 100 Oximetry 02/14/18 02/14/18 02/14/18 18:45 19:15 19:35 Temperature 97.6 F Pulse Rate 83 84 Respiratory 20 Rate Blood Pressure 116/57 111/56 O2 Sat by Pulse Oximetry 02/14/18 02/14/18 02/14/18 20:15 20:31 20:36 Temperature Pulse Rate 82 86 84 Respiratory Rate Blood Pressure 128/74 O2 Sat by Pulse 99 99 Oximetry 02/14/18 02/14/18 20:41 20:45 Temperature Pulse Rate 88 85 Respiratory Rate Blood Pressure 121/74 O2 Sat by Pulse 99 Oximetry UO 150mL clear urine at 2033 - Exam Breasts: deferred Cardiovascular: Regular rate Lungs: Clear to auscultation, Normal air movement - Labs Labs: Abnormal Labs 02/13/18 02/13/18 02/13/18 16:10 17:08 17:10 Hgb 15.0 H MCHC 36 H Seg Neutrophils % 73.4 H Creatinine 0.5 L Magnesium 2.90 H AST 47 H ALT Lactate Dehydrogenase 420 H 02/14/18 02/14/18 02/14/18 00:34 06:43 06:43 Hgb MCHC 35 H Seg Neutrophils % Creatinine Magnesium 4.30 H 4.60 H AST ALT Lactate Dehydrogenase 02/14/18 02/14/18 06:43 17:12 Hgb MCHC Seg Neutrophils % Creatinine 0.5 L Magnesium 5.10 H AST 87 H ALT 81 H Lactate Dehydrogenase 533 H Laboratory Results - last 24 hr 02/13/18 02/14/18 02/14/18 16:39 00:34 06:43 WBC RBC Hgb Hct MCV MCH MCHC RDW Plt Count Creatinine Estimated GFR Uric Acid Magnesium 4.30 H 4.60 H AST ALT Lactate Dehydrogenase RPR Nonreactive 02/14/18 02/14/18 02/14/18 06:43 06:43 17:12 WBC 10.9 RBC 4.40 Hgb 13.4 Hct 38.3 MCV 87 MCH 31 MCHC 35 H RDW 15.1 Plt Count 150 Creatinine 0.5 L Estimated GFR > 60 Uric Acid 5.6 Magnesium 5.10 H AST 87 H ALT 81 H Lactate Dehydrogenase 533 H RPR
[2018-02-15] MEDS: SUBLIMAZE IV PRN ×2 (04:11→07:42)
[2018-02-15] MEDS: LACTATED RINGERS 1,000 ML IV SCH ×3 (04:11→13:59)
[2018-02-15 06:58] LABS: Hematocrit 36.4 % (30.3-42.9); Hemoglobin 13.1 gm/dl (10.1-14.3); Mean Corpuscular HGB Conc 36 % (30-34); Mean Corpuscular Hemoglobin 31 pg (28-32); Mean Corpuscular Volume 87 fl (79-97); Platelet Count 139 K/mm3 (140-440); Red Blood Count 4.19 M/mm3 (3.65-5.03); Red Cell Distribution Width 14.7 % (13.2-15.2)
[2018-02-15 07:15] LABS: Alanine Aminotransferase 52 units/L (7-56)
[2018-02-15] MEDS: MAGNESIUM SULFATE 40GM/1000ML 40 GM/1,000 ML BAG IV SCH (07:30)
[2018-02-15] MEDS ORDERED: ceFAZolin 2 GM in NACL 0.9% 100 ML IV SCH (07:51)
--- NOTE | 2018-02-15 08:09 | Progress Note ---
Assessment and Plan A: PT with 39 week IUFD and severe pre-e. Patient resting w/ c/o cramping. Temp noted by RN this morning 100.7 - pt feels warm to touch. no increase in WBC drawn this morning. b/p's trending in the normal range and LFTs decreased to AST 25/ALT 52, platelets decreased to 139. Most recent mag level 4.7. Pt reports SANCHEZ, but denies epigastric pain or visual changes. Urine output adequate. Plan: cervidil to be removed @ 1020 by RN and SVE, NPO, IV ancef and will do 1 dose of tylenol for temp and SANCHEZ. , Chidi english,. - Patient Problems (1) IUFD (intrauterine ) Onset Date: ~02/13/18 Current Visit: Yes Status: Acute (2) Severe pre-eclampsia Onset Date: ~02/13/18 Current Visit: Yes Status: Acute Qualifiers: Trimester: third trimester Qualified Code(s): O14.13 - Severe pre-eclampsia , third trimester (3) Febrile Current Visit: Yes Status: Acute Qualifiers: Fever type: fever during labor (maternal) Qualified Code(s): O75.2 - Pyrexia during labor, not elsewhere classified Subjective - Subjective Date of service: 02/15/18 Principal diagnosis: 1)IUFD 2)38+ wks 3)severe pre E 4)febrile Patient reports: contractions, no new complaints, no loss of fluid, no vaginal bleeding Objective - Vital Signs Vital Signs: Vital Signs - 12hr 02/14/18 02/14/18 02/14/18 20:15 20:31 20:36 Temperature Pulse Rate 82 86 84 Respiratory Rate Blood Pressure 128/74 O2 Sat by Pulse 99 99 Oximetry 02/14/18 02/14/18 02/14/18 20:41 20:45 20:46 Temperature Pulse Rate 88 85 84 Respiratory Rate Blood Pressure 121/74 O2 Sat by Pulse 99 99 Oximetry 02/14/18 02/14/18 02/14/18 20:51 20:56 21:01 Temperature Pulse Rate 87 88 88 Respiratory Rate Blood Pressure O2 Sat by Pulse 100 99 99 Oximetry 02/14/18 02/14/18 02/14/18 21:06 21:11 21:15 Temperature Pulse Rate 89 88 80 Respiratory Rate Blood Pressure 125/61 O2 Sat by Pulse 99 100 Oximetry 02/14/18 02/14/18 02/14/18 21:16 21:21 21:26 Temperature Pulse Rate 83 84 83 Respiratory Rate Blood Pressure O2 Sat by Pulse 100 100 99 Oximetry 02/14/18 02/14/18 02/14/18 21:31 21:36 21:41 Temperature Pulse Rate 86 86 87 Respiratory Rate Blood Pressure O2 Sat by Pulse 99 100 99 Oximetry 02/14/18 02/14/18 02/14/18 21:45 21:46 21:51 Temperature Pulse Rate 86 84 92 H Respiratory Rate Blood Pressure 113/60 O2 Sat by Pulse 99 100 Oximetry 02/14/18 02/14/18 02/14/18 21:56 22:01 22:06 Temperature Pulse Rate 98 H 89 98 H Respiratory Rate Blood Pressure O2 Sat by Pulse 100 100 100 Oximetry 02/14/18 02/14/18 02/14/18 22:11 22:15 22:16 Temperature Pulse Rate 100 H 93 H 90 Respiratory Rate Blood Pressure 135/74 O2 Sat by Pulse 100 100 Oximetry 02/14/18 02/14/18 02/14/18 22:21 22:26 22:31 Temperature Pulse Rate 94 H 92 H 85 Respiratory Rate Blood Pressure O2 Sat by Pulse 100 100 100 Oximetry 02/14/18 02/14/18 02/14/18 22:36 22:41 22:46 Temperature Pulse Rate 89 100 H 88 Respiratory Rate Blood Pressure 119/71 O2 Sat by Pulse 99 100 100 Oximetry 02/14/18 02/14/18 02/14/18 22:51 22:56 23:01 Temperature Pulse Rate 86 88 85 Respiratory Rate Blood Pressure O2 Sat by Pulse 100 100 100 Oximetry 02/14/18 02/14/18 02/14/18 23:06 23:11 23:16 Temperature Pulse Rate 86 88 97 H Respiratory Rate Blood Pressure 131/62 O2 Sat by Pulse 100 100 99 Oximetry 02/14/18 02/14/18 02/14/18 23:21 23:26 23:31 Temperature Pulse Rate 86 91 H 89 Respiratory Rate Blood Pressure O2 Sat by Pulse 100 100 100 Oximetry 02/14/18 02/14/18 02/14/18 23:36 23:41 23:45 Temperature Pulse Rate 88 101 H 90 Respiratory Rate Blood Pressure 135/79 O2 Sat by Pulse 100 100 Oximetry 02/14/18 02/14/18 02/14/18 23:46 23:51 23:56 Temperature Pulse Rate 90 88 90 Respiratory Rate Blood Pressure O2 Sat by Pulse 100 100 100 Oximetry 02/15/18 02/15/18 02/15/18 00:01 00:06 00:11 Temperature Pulse Rate 95 H 104 H 106 H Respiratory Rate Blood Pressure O2 Sat by Pulse 99 99 99 Oximetry 02/15/18 02/15/18 02/15/18 00:16 00:21 00:26 Temperature Pulse Rate 105 H 114 H 112 H Respiratory Rate Blood Pressure 107/55 O2 Sat by Pulse 99 98 98 Oximetry 02/15/18 02/15/18 02/15/18 00:31 00:36 00:41 Temperature Pulse Rate 108 H 109 H 103 H Respiratory Rate Blood Pressure O2 Sat by Pulse 99 99 99 Oximetry 02/15/18 02/15/18 02/15/18 00:46 00:51 00:54 Temperature 99 F Pulse Rate 104 H 104 H Respiratory 20 Rate Blood Pressure 117/56 O2 Sat by Pulse 98 99 Oximetry 02/15/18 02/15/18 02/15/18 00:56 01:01 01:06 Temperature Pulse Rate 104 H 104 H 98 H Respiratory Rate Blood Pressure O2 Sat by Pulse 99 99 100 Oximetry 02/15/18 02/15/18 02/15/18 01:11 01:16 01:21 Temperature Pulse Rate 103 H 106 H 98 H Respiratory Rate Blood Pressure O2 Sat by Pulse 99 99 99 Oximetry 02/15/18 02/15/18 02/15/18 01:26 01:31 01:36 Temperature Pulse Rate 100 H 105 H 104 H Respiratory Rate Blood Pressure O2 Sat by Pulse 100 100 99 Oximetry 02/15/18 02/15/18 02/15/18 01:41 01:46 01:49 Temperature Pulse Rate 104 H 99 H 116 H Respiratory Rate Blood Pressure O2 Sat by Pulse 100 100 94 Oximetry 02/15/18 02/15/18 02/15/18 01:51 01:56 01:59 Temperature Pulse Rate 99 H 99 H 98 H Respiratory Rate Blood Pressure 117/64 O2 Sat by Pulse 100 100 Oximetry 02/15/18 02/15/18 02/15/18 02:01 02:06 02:11 Temperature Pulse Rate 106 H 103 H 106 H Respiratory Rate Blood Pressure O2 Sat by Pulse 100 100 100 Oximetry 02/15/ 05//18 05/ 02:16 02:21 02:26 Temperature Pulse Rate 107 H 110 H 107 H Respiratory Rate Blood Pressure O2 Sat by Pulse 100 98 98 Oximetry 02/15/18 05//18 05 02:31 02:36 02:41 Temperature Pulse Rate 108 H 107 H 115 H Respiratory Rate Blood Pressure O2 Sat by Pulse 98 98 99 Oximetry 02/15/18 05/02/15/18 02:46 02:51 02:56 Temperature Pulse Rate 110 H 99 H 97 H Respiratory Rate Blood Pressure O2 Sat by Pulse 97 99 100 Oximetry 02/15/18 0502/15/18 02:59 03:01 03:06 Temperature Pulse Rate 99 H 101 H 107 H Respiratory Rate Blood Pressure 109/59 O2 Sat by Pulse 99 99 Oximetry 02/15/18 05//18 05 03:11 03:16 03:21 Temperature Pulse Rate 103 H 98 H 103 H Respiratory Rate Blood Pressure O2 Sat by Pulse 99 100 99 Oximetry 02/15/ 05/18 05 03:26 03:31 03:36 Temperature Pulse Rate 104 H 107 H 105 H Respiratory Rate Blood Pressure O2 Sat by Pulse 100 99 99 Oximetry 02/15/18 05/18 05 03:41 03:46 03:51 Temperature Pulse Rate 105 H 114 H 115 H Respiratory Rate Blood Pressure O2 Sat by Pulse 99 99 100 Oximetry 02/15/1802/15/18 02/15/18 03:56 03:59 04:01 Temperature Pulse Rate 112 H 106 H 103 H Respiratory Rate Blood Pressure 146/74 O2 Sat by Pulse 99 100 Oximetry 05/ 05/25/18 05/ 04:06 04:11 04:16 Temperature Pulse Rate 102 H 105 H 103 H Respiratory 18 Rate Blood Pressure O2 Sat by Pulse 100 99 100 Oximetry 05/18 05/25/18 05 04:21 04:26 04:31 Temperature Pulse Rate 105 H 121 H 103 H Respiratory Rate Blood Pressure O2 Sat by Pulse 95 99 99 Oximetry 02/15/ 05/18 05 04:36 04:41 04:46 Temperature Pulse Rate 115 H 118 H 107 H Respiratory Rate Blood Pressure O2 Sat by Pulse 100 98 100 Oximetry 02/15/18 02/15/18 02/15/18 04:51 04:56 04:58 Temperature Pulse Rate 112 H 105 H 112 H Respiratory Rate Blood Pressure 124/73 O2 Sat by Pulse 99 99 Oximetry 02/15/18 02/15/18 02/15/18 05:01 05:06 05:11 Temperature Pulse Rate 115 H 117 H 114 H Respiratory Rate Blood Pressure O2 Sat by Pulse 99 100 99 Oximetry 02/15/18 02/15/18 02/15/18 05:16 05:21 05:26 Temperature Pulse Rate 116 H 118 H 124 H Respiratory Rate Blood Pressure O2 Sat by Pulse 100 99 99 Oximetry 02/15/18 02/15/18 02/15/18 05:31 05:36 05:41 Temperature Pulse Rate 109 H 112 H 112 H Respiratory Rate Blood Pressure O2 Sat by Pulse 99 99 99 Oximetry 02/15/18 02/15/18 02/15/18 05:46 05:51 05:56 Temperature Pulse Rate 113 H 118 H 124 H Respiratory Rate Blood Pressure O2 Sat by Pulse 99 99 99 Oximetry 02/15/18 02/15/18 02/15/18 05:59 06:01 06:06 Temperature Pulse Rate 118 H 116 H 116 H Respiratory Rate Blood Pressure 122/76 O2 Sat by Pulse 99 100 Oximetry 02/15/18 02/15/18 02/15/18 06:11 06:16 06:21 Temperature Pulse Rate 122 H 117 H 114 H Respiratory Rate Blood Pressure O2 Sat by Pulse 100 100 100 Oximetry 02/15/18 02/15/18 02/15/18 06:26 06:31 06:36 Temperature Pulse Rate 116 H 115 H 110 H Respiratory Rate Blood Pressure O2 Sat by Pulse 100 100 100 Oximetry 02/15/18 02/15/18 02/15/18 06:41 06:46 06:51 Temperature Pulse Rate 109 H 105 H 111 H Respiratory Rate Blood Pressure O2 Sat by Pulse 100 100 100 Oximetry 02/15/18 02/15/18 02/15/18 06:56 07:01 07:06 Temperature Pulse Rate 116 H 109 H 106 H Respiratory Rate Blood Pressure O2 Sat by Pulse 100 100 100 Oximetry 02/15/18 02/15/18 02/15/18 07:11 07:16 07:21 Temperature Pulse Rate 112 H 115 H 111 H Respiratory Rate Blood Pressure O2 Sat by Pulse 100 100 100 Oximetry 02/15/18 02/15/18 02/15/18 07:23 07:26 07:31 Temperature 100.7 F H Pulse Rate 109 H 112 H 98 H Respiratory 22 Rate Blood Pressure 120/75 O2 Sat by Pulse 100 100 Oximetry 02/15/18 02/15/18 02/15/18 07:36 07:41 07:46 Temperature Pulse Rate 109 H 108 H 107 H Respiratory Rate Blood Pressure O2 Sat by Pulse 100 100 100 Oximetry 02/15/18 02/15/18 02/15/18 07:51 07:56 07:58 Temperature Pulse Rate 111 H 100 H 100 H Respiratory Rate Blood Pressure 108/58 O2 Sat by Pulse 99 99 Oximetry 02/15/18 02/15/18 08:01 08:06 Temperature Pulse Rate 106 H 107 H Respiratory Rate Blood Pressure O2 Sat by Pulse 99 99 Oximetry - Exam Breasts: normal Cardiovascular: Regular rate Lungs: Clear to auscultation, Normal air movement Abdomen: Present: normal appearance, soft Uterus: Present: normal Uterine Contraction Pattern: Irregular Uterine Tone Measurement Phase: Contraction Uterine Contraction Intensity: Mild Extremities: edema Deep Tendon Reflex Grade: Normal +2 - Labs Labs: Abnormal Labs 02/13/18 02/13/18 02/13/18 16:10 17:08 17:10 Hgb 15.0 H MCHC 36 H Plt Count Seg Neutrophils % 73.4 H Creatinine 0.5 L Magnesium 2.90 H AST 47 H ALT Lactate Dehydrogenase 420 H 02/14/18 02/14/18 02/14/18 00:34 06:43 06:43 Hgb MCHC 35 H Plt Count Seg Neutrophils % Creatinine Magnesium 4.30 H 4.60 H AST ALT Lactate Dehydrogenase 02/14/18 02/14/18 02/15/18 06:43 17:12 06:06 Hgb MCHC 36 H Plt Count 139 L Seg Neutrophils % Creatinine 0.5 L Magnesium 5.10 H AST 87 H ALT 81 H Lactate Dehydrogenase 533 H 02/15/18 02/15/18 06:06 06:06 Hgb MCHC Plt Count Seg Neutrophils % Creatinine 0.6 L Magnesium 4.70 H AST ALT Lactate Dehydrogenase Laboratory Results - last 24 hr 02/13/18 02/14/18 02/15/18 16:39 17:12 06:06 WBC 10.9 RBC 4.19 Hgb 13.1 Hct 36.4 MCV 87 MCH 31 MCHC 36 H RDW 14.7 Plt Count 139 L Creatinine Estimated GFR Magnesium 5.10 H AST ALT RPR Nonreactive 02/15/18 02/15/18 06:06 06:06 WBC RBC Hgb Hct MCV MCH MCHC RDW Plt Count Creatinine 0.6 L Estimated GFR > 60 Magnesium 4.70 H AST 25 ALT 52 RPR
[2018-02-15] MEDS: ANCEF/STERILE WATER 2 GM/20 ML 2 GM/20 ML SYRINGE IV SCH ×2 (09:34→16:44)
--- NOTE | 2018-02-15 09:44 | Event Note ---
Date: 02/15/18 I d/w the possibliltiy of chorio given temp she had this am and that it will still mean delivery but not necessarily a c/s delivery. I advised that at this time the cervidil will be removed and plan of care would be determined at this time. Pt has antibx that have been ordered to be started. She does c/o feeling the contractions at this time although they are not tracking well. LFTs are now normal as well as recent magnesium level. con't with serial IOL of IUFD.
[2018-02-15] MEDS: STADOL IV PRN (10:40)
[2018-02-15] MEDS: PROCARDIA XL PO SCH (10:42)
[2018-02-15] MEDS: PITOCin/NS 30 UNIT/500ML 30 UNITS/500 ML BAG IV SCH ×9 (12:08→18:17)
--- NOTE | 2018-02-15 12:37 | Event Note ---
Date: 02/15/18 SVE now 1cm, pitocin induction started. Discussed plan of care with patient and family, all questions addressed. repeat temp afebrile. b/p's NL. Will reassess PRN.
[2018-02-15] MEDS ORDERED: ePHEDrine SULFATE IV PRN (14:50)
[2018-02-15] MEDS ORDERED: NARCAN 2 MG/2 ML IV PRN (14:50)
--- NOTE | 2018-02-15 14:50 | Anesthesia Consultation ---
Anesthesia Consult and Med Hx Date of service: 02/15/18 - Airway Anesthetic Teeth Evaluation: Good Mallampati Class: Class III Intubation Access Assessment: Possibly Difficult - Pre-Operative Health Status ASA Pre-Surgery Classification: ASA3 Proposed Anesthetic Plan: Epidural, Spinal - Pulmonary Hx Asthma: Yes COPD: No - Cardiovascular System Hx Hypertension: Yes (PIH) - Central Nervous System Hx Seizures: No Hx Psychiatric Problems: No - Endocrine Hx Renal Disease: No (PIH) Hx Hypothyroidism: No Hx Hyperthyroidism: No - Hematic Hx Anemia: No Hx Sickle Cell Disease: No - Other Systems Hx Alcohol Use: No Hx Obesity: Yes (BMI 42.9)
[2018-02-15] MEDS ORDERED: fentaNYL-BUPIV 2 MCG/ML-0.125% 200 MCG/100 ML BAG EPIDURAL SCH (15:00)
--- NOTE | 2018-02-15 17:05 | Progress Note ---
Assessment and Plan After discussing plan with Dr. Murillo and patient, AROM performed @ 1655 with thick mec fluid. No bloody fluid noted. no foul odor noted. IUPC placed without difficulty and tracing ctx well. SVE 1.5/60/-4, presenting part completly out of pelvis even after AROM. b/p's 140-160's/80-90's. Last mag level 5.0, next draw @ 1800. Output adequate, no fever since initial temp this morning. Will update Dr. Murillo and continue with current plan of care. - Patient Problems (1) IUFD (intrauterine ) Onset Date: ~02/13/18 Current Visit: Yes Status: Acute (2) Severe pre-eclampsia Onset Date: ~02/13/18 Current Visit: Yes Status: Acute Qualifiers: Trimester: third trimester Qualified Code(s): O14.13 - Severe pre-eclampsia , third trimester (3) Febrile Current Visit: Yes Status: Acute Qualifiers: Fever type: fever during labor (maternal) Qualified Code(s): O75.2 - Pyrexia during labor, not elsewhere classified Subjective - Subjective Date of service: 02/15/18 Principal diagnosis: 1)IUFD 2)39 wks 3)severe pre E 4)febrile Patient reports: new complaints (semi-comfortable with ctx), no loss of fluid, no vaginal bleeding Objective - Vital Signs Vital Signs: Vital Signs - 12hr 02/15/18 02/15/18 02/15/18 05:01 05:06 05:11 Temperature Pulse Rate 115 H 117 H 114 H Respiratory Rate Blood Pressure O2 Sat by Pulse 99 100 99 Oximetry 02/15/18 02/15/18 02/15/18 05:16 05:21 05:26 Temperature Pulse Rate 116 H 118 H 124 H Respiratory Rate Blood Pressure O2 Sat by Pulse 100 99 99 Oximetry 02/15/18 02/15/18 02/15/18 05:31 05:36 05:41 Temperature Pulse Rate 109 H 112 H 112 H Respiratory Rate Blood Pressure O2 Sat by Pulse 99 99 99 Oximetry 02/15/18 02/15/18 02/15/18 05:46 05:51 05:56 Temperature Pulse Rate 113 H 118 H 124 H Respiratory Rate Blood Pressure O2 Sat by Pulse 99 99 99 Oximetry 02/15/18 02/15/18 02/15/18 05:59 06:01 06:06 Temperature Pulse Rate 118 H 116 H 116 H Respiratory Rate Blood Pressure 122/76 O2 Sat by Pulse 99 100 Oximetry 02/15/18 02/15/18 02/15/18 06:11 06:16 06:21 Temperature Pulse Rate 122 H 117 H 114 H Respiratory Rate Blood Pressure O2 Sat by Pulse 100 100 100 Oximetry 02/15/18 02/15/18 02/15/18 06:26 06:31 06:36 Temperature Pulse Rate 116 H 115 H 110 H Respiratory Rate Blood Pressure O2 Sat by Pulse 100 100 100 Oximetry 02/15/18 02/15/18 02/15/18 06:41 06:46 06:51 Temperature Pulse Rate 109 H 105 H 111 H Respiratory Rate Blood Pressure O2 Sat by Pulse 100 100 100 Oximetry 02/15/18 02/15/18 02/15/18 06:56 07:01 07:06 Temperature Pulse Rate 116 H 109 H 106 H Respiratory Rate Blood Pressure O2 Sat by Pulse 100 100 100 Oximetry 02/15/18 02/15/18 02/15/18 07:11 07:16 07:21 Temperature Pulse Rate 112 H 115 H 111 H Respiratory Rate Blood Pressure O2 Sat by Pulse 100 100 100 Oximetry 02/15/18 02/15/18 02/15/18 07:23 07:26 07:31 Temperature 100.7 F H Pulse Rate 109 H 112 H 98 H Respiratory 22 Rate Blood Pressure 120/75 O2 Sat by Pulse 100 100 Oximetry 02/15/18 02/15/18 02/15/18 07:36 07:41 07:46 Temperature Pulse Rate 109 H 108 H 107 H Respiratory Rate Blood Pressure O2 Sat by Pulse 100 100 100 Oximetry 02/15/18 02/15/18 02/15/18 07:51 07:56 07:58 Temperature Pulse Rate 111 H 100 H 100 H Respiratory Rate Blood Pressure 108/58 O2 Sat by Pulse 99 99 Oximetry 02/15/18 02/15/18 02/15/18 08:01 08:06 08:11 Temperature Pulse Rate 106 H 107 H 100 H Respiratory Rate Blood Pressure O2 Sat by Pulse 99 99 99 Oximetry 02/15/1802/15/02/15/18 08:16 08:21 08:26 Temperature Pulse Rate 100 H 103 H 102 H Respiratory Rate Blood Pressure O2 Sat by Pulse 99 99 99 Oximetry 05/25/18 05/25/18 05/25/18 08:31 08:36 08:41 Temperature Pulse Rate 106 H 100 H 101 H Respiratory Rate Blood Pressure O2 Sat by Pulse 100 100 100 Oximetry 0525/18 05/25/18 05/25/18 08:46 08:51 08:56 Temperature Pulse Rate 96 H 104 H 105 H Respiratory Rate Blood Pressure O2 Sat by Pulse 100 99 100 Oximetry 25/18 05/25/18 05/ 08:58 09:00 09:01 Temperature 98.8 F Pulse Rate 106 H 108 H Respiratory 18 Rate Blood Pressure 106/60 O2 Sat by Pulse 100 Oximetry 02/15/18 05//18 05/ 09:06 09:11 09:16 Temperature Pulse Rate 102 H 102 H 100 H Respiratory Rate Blood Pressure O2 Sat by Pulse 100 100 100 Oximetry 02/15/18 05/25/18 05//18 09:21 09:26 09:31 Temperature Pulse Rate 103 H 101 H 107 H Respiratory Rate Blood Pressure O2 Sat by Pulse 99 100 99 Oximetry 02/15/18 05/25/18 05/ 09:36 09:41 09:46 Temperature Pulse Rate 99 H 100 H 98 H Respiratory Rate Blood Pressure O2 Sat by Pulse 99 100 99 Oximetry 02/15/18 05/25/18 05/ 09:51 09:56 09:58 Temperature Pulse Rate 97 H 95 H 94 H Respiratory Rate Blood Pressure 119/73 O2 Sat by Pulse 100 100 Oximetry 05/18 0525/18 05// 10:01 10:06 10:11 Temperature Pulse Rate 96 H 88 89 Respiratory Rate Blood Pressure O2 Sat by Pulse 99 100 100 Oximetry 0525/18 05/25/18 05/25/18 10:16 10:21 10:26 Temperature Pulse Rate 89 92 H 92 H Respiratory Rate Blood Pressure O2 Sat by Pulse 100 100 100 Oximetry 05/25/18 05/25/18 05/25/18 10:31 10:36 10:41 Temperature Pulse Rate 90 91 H 97 H Respiratory Rate Blood Pressure O2 Sat by Pulse 99 100 100 Oximetry 05/25/18 05/25/18 05/25/18 10:46 10:51 10:56 Temperature Pulse Rate 88 89 94 H Respiratory Rate Blood Pressure O2 Sat by Pulse 100 100 100 Oximetry 02/15/18 02/15/18 02/15/18 10:57 10:58 11:01 Temperature Pulse Rate 90 92 H 92 H Respiratory Rate Blood Pressure 112/55 115/57 O2 Sat by Pulse 100 Oximetry 02/15/18 02/15/18 02/15/18 11:06 11:11 11:16 Temperature Pulse Rate 93 H 100 H 95 H Respiratory Rate Blood Pressure O2 Sat by Pulse 100 100 100 Oximetry 02/15/18 02/15/18 02/15/18 11:21 11:26 11:30 Temperature 98.2 F Pulse Rate 94 H 101 H Respiratory 18 Rate Blood Pressure O2 Sat by Pulse 100 100 Oximetry 02/15/18 02/15/18 02/15/18 11:31 11:36 11:41 Temperature Pulse Rate 100 H 94 H 96 H Respiratory Rate Blood Pressure O2 Sat by Pulse 100 100 100 Oximetry 02/15/18 02/15/18 02/15/18 11:46 11:51 11:59 Temperature Pulse Rate 94 H 95 H 84 Respiratory Rate Blood Pressure 125/61 O2 Sat by Pulse 100 100 Oximetry 02/15/18 02/15/18 02/15/18 12:12 12:27 12:42 Temperature Pulse Rate 85 82 83 Respiratory Rate Blood Pressure 121/59 130/69 128/67 O2 Sat by Pulse Oximetry 02/15/18 02/15/18 02/15/18 12:58 13:14 13:56 Temperature Pulse Rate 80 77 88 Respiratory Rate Blood Pressure 122/59 108/54 147/75 O2 Sat by Pulse Oximetry 02/15/18 02/15/18 02/15/18 13:57 14:12 14:27 Temperature Pulse Rate 95 H 95 H 93 H Respiratory Rate Blood Pressure 145/74 151/79 139/71 O2 Sat by Pulse Oximetry 02/15/18 02/15/18 02/15/18 14:36 14:38 14:39 Temperature Pulse Rate 94 H 96 H 99 H Respiratory Rate Blood Pressure 168/87 157/88 O2 Sat by Pulse 100 Oximetry 02/15/18 02/15/18 02/15/18 14:41 14:43 14:45 Temperature Pulse Rate 93 H 91 H 93 H Respiratory Rate Blood Pressure 157/87 146/84 143/74 O2 Sat by Pulse 100 Oximetry 02/15/18 02/15/18 02/15/18 14:46 14:48 14:49 Temperature Pulse Rate 110 H 102 H 89 Respiratory Rate Blood Pressure 141/67 142/75 O2 Sat by Pulse 100 Oximetry 02/15/18 02/15/18 02/15/18 14:51 14:59 15:00 Temperature 97.6 F Pulse Rate 96 H 77 Respiratory 18 Rate Blood Pressure 138/77 99/55 O2 Sat by Pulse Oximetry 02/15/18 02/15/18 02/15/18 15:02 15:07 15:10 Temperature Pulse Rate 81 81 81 Respiratory Rate Blood Pressure 103/57 100/56 O2 Sat by Pulse 99 Oximetry 02/15/18 02/15/18 02/15/18 15:15 15:20 15:25 Temperature Pulse Rate 89 82 89 Respiratory Rate Blood Pressure 111/60 O2 Sat by Pulse 98 99 98 Oximetry 02/15/18 02/15/18 02/15/18 15:30 15:35 15:39 Temperature Pulse Rate 86 80 78 Respiratory Rate Blood Pressure 119/66 O2 Sat by Pulse 99 99 Oximetry 02/15/18 02/15/18 02/15/18 15:40 15:45 15:50 Temperature Pulse Rate 82 80 83 Respiratory Rate Blood Pressure O2 Sat by Pulse 98 99 98 Oximetry 02/15/18 02/15/18 02/15/18 15:55 16:00 16:05 Temperature Pulse Rate 81 80 84 Respiratory Rate Blood Pressure 135/80 O2 Sat by Pulse 99 98 99 Oximetry 02/15/18 02/15/18 02/15/18 16:10 16:11 16:15 Temperature Pulse Rate 87 82 88 Respiratory Rate Blood Pressure 145/85 O2 Sat by Pulse 100 99 Oximetry 02/15/18 02/15/18 02/15/18 16:20 16:25 16:30 Temperature Pulse Rate 83 80 81 Respiratory Rate Blood Pressure 156/93 O2 Sat by Pulse 100 100 100 Oximetry 02/15/18 02/15/18 02/15/18 16:35 16:40 16:45 Temperature Pulse Rate 86 81 84 Respiratory Rate Blood Pressure 165/96 O2 Sat by Pulse 99 99 100 Oximetry 02/15/18 02/15/18 02/15/18 16:50 16:55 16:57 Temperature Pulse Rate 87 89 86 Respiratory Rate Blood Pressure 157/90 144/81 O2 Sat by Pulse 99 99 Oximetry 02/15/18 17:00 Temperature Pulse Rate 90 Respiratory Rate Blood Pressure O2 Sat by Pulse 99 Oximetry - Exam Breasts: normal Cardiovascular: Regular rate Lungs: Clear to auscultation, Normal air movement Abdomen: Present: normal appearance Vulva: both: normal Uterus: Present: normal Uterine Contraction Monitor Mode: Internal Cervical Dilatation: 1.5 (AROM - thick mec) Cervical Effacement Percentage: 60 station: -4 Uterine Contraction Frequency (min): 2-3 Uterine Contraction Duration: 60 Uterine Contraction Pattern: Regular Uterine Tone Measurement Phase: Contraction Uterine Contraction Intensity: Strong/Firm Extremities: edema Deep Tendon Reflex Grade: Normal +2 - Labs Labs: Abnormal Labs 02/13/18 02/13/18 02/13/18 16:10 17:08 17:10 Hgb 15.0 H MCHC 36 H Plt Count Seg Neutrophils % 73.4 H Creatinine 0.5 L Magnesium 2.90 H AST 47 H ALT Lactate Dehydrogenase 420 H 02/14/18 02/14/18 02/14/18 00:34 06:43 06:43 Hgb MCHC 35 H Plt Count Seg Neutrophils % Creatinine Magnesium 4.30 H 4.60 H AST ALT Lactate Dehydrogenase 02/14/18 02/14/18 02/15/18 06:43 17:12 06:06 Hgb MCHC 36 H Plt Count 139 L Seg Neutrophils % Creatinine 0.5 L Magnesium 5.10 H AST 87 H ALT 81 H Lactate Dehydrogenase 533 H 02/15/18 02/15/18 02/15/18 06:06 06:06 12:28 Hgb MCHC Plt Count Seg Neutrophils % Creatinine 0.6 L Magnesium 4.70 H 5.00 H AST ALT Lactate Dehydrogenase Laboratory Results - last 24 hr 02/14/18 02/15/18 02/15/18 17:12 06:06 06:06 WBC 10.9 RBC 4.19 Hgb 13.1 Hct 36.4 MCV 87 MCH 31 MCHC 36 H RDW 14.7 Plt Count 139 L Creatinine 0.6 L Estimated GFR > 60 Magnesium 5.10 H AST 25 ALT 52 02/15/18 02/15/18 06:06 12:28 WBC RBC Hgb Hct MCV MCH MCHC RDW Plt Count Creatinine Estimated GFR Magnesium 4.70 H 5.00 H AST ALT
--- NOTE | 2018-02-15 22:07 | Progress Note ---
Assessment and Plan SVE by same provider w/o change since 1899. Discussed patient's wishes and possible need for operative . Discussed labor is more difficult with a demise as the baby does not maneuver the pelvis and help with decent. patient states she is ok with operative but would like to try one more hour of labor before making a decision. Patient repositioned and provided with extra blankets as she is shivering and c/o feeling cold. oral temp 99.6. Patient's mother very supportive and understanding. All questions addressed. Dr. Murillo informed of patient's status and wishes. Will come and assess in 1 hours time. - Patient Problems (1) IUFD (intrauterine ) Onset Date: ~02/13/18 Current Visit: Yes Status: Acute (2) Severe pre-eclampsia Onset Date: ~02/13/18 Current Visit: Yes Status: Acute Qualifiers: Trimester: third trimester Qualified Code(s): O14.13 - Severe pre-eclampsia , third trimester (3) Febrile Current Visit: Yes Status: Acute Qualifiers: Fever type: fever during labor (maternal) Qualified Code(s): O75.2 - Pyrexia during labor, not elsewhere classified Subjective - Subjective Date of service: 02/15/18 Principal diagnosis: 1)IUFD 2)39 wks 3)severe pre E 4)febrile Patient reports: new complaints (comfortable with epidural, c/o feeling cold), loss of fluid Objective - Vital Signs Vital Signs: Vital Signs - 12hr 02/15/18 02/15/18 02/15/18 10:06 10:11 10:16 Temperature Pulse Rate 88 89 89 Respiratory Rate Blood Pressure Blood Pressure [Right] O2 Sat by Pulse 100 100 100 Oximetry 02/15/18 02/15/18 02/15/18 10:21 10:26 10:31 Temperature Pulse Rate 92 H 92 H 90 Respiratory Rate Blood Pressure Blood Pressure [Right] O2 Sat by Pulse 100 100 99 Oximetry 02/15/18 02/15/18 02/15/18 10:36 10:41 10:46 Temperature Pulse Rate 91 H 97 H 88 Respiratory Rate Blood Pressure Blood Pressure [Right] O2 Sat by Pulse 100 100 100 Oximetry 02/15/18 02/15/18 02/15/18 10:51 10:56 10:57 Temperature Pulse Rate 89 94 H 90 Respiratory Rate Blood Pressure 112/55 Blood Pressure [Right] O2 Sat by Pulse 100 100 Oximetry 02/15/18 02/15/18 02/15/18 10:58 11:01 11:06 Temperature Pulse Rate 92 H 92 H 93 H Respiratory Rate Blood Pressure 115/57 Blood Pressure [Right] O2 Sat by Pulse 100 100 Oximetry 02/15/18 02/15/18 02/15/18 11:11 11:16 11:21 Temperature Pulse Rate 100 H 95 H 94 H Respiratory Rate Blood Pressure Blood Pressure [Right] O2 Sat by Pulse 100 100 100 Oximetry 02/15/18 02/15/18 02/15/18 11:26 11:30 11:31 Temperature 98.2 F Pulse Rate 101 H 100 H Respiratory 18 Rate Blood Pressure Blood Pressure [Right] O2 Sat by Pulse 100 100 Oximetry 02/15/18 02/15/18 02/15/18 11:36 11:41 11:46 Temperature Pulse Rate 94 H 96 H 94 H Respiratory Rate Blood Pressure Blood Pressure [Right] O2 Sat by Pulse 100 100 100 Oximetry 02/15/18 02/15/18 02/15/18 11:51 11:59 12:12 Temperature Pulse Rate 95 H 84 85 Respiratory Rate Blood Pressure 125/61 121/59 Blood Pressure [Right] O2 Sat by Pulse 100 Oximetry 02/15/18 02/15/18 02/15/18 12:27 12:42 12:58 Temperature Pulse Rate 82 83 80 Respiratory Rate Blood Pressure 130/69 128/67 122/59 Blood Pressure [Right] O2 Sat by Pulse Oximetry 02/15/18 02/15/18 02/15/18 13:14 13:56 13:57 Temperature Pulse Rate 77 88 95 H Respiratory Rate Blood Pressure 108/54 147/75 145/74 Blood Pressure [Right] O2 Sat by Pulse Oximetry 02/15/18 02/15/18 02/15/18 14:12 14:27 14:36 Temperature Pulse Rate 95 H 93 H 94 H Respiratory Rate Blood Pressure 151/79 139/71 Blood Pressure [Right] O2 Sat by Pulse 100 Oximetry 02/15/18 02/15/18 02/15/18 14:38 14:39 14:41 Temperature Pulse Rate 96 H 99 H 93 H Respiratory Rate Blood Pressure 168/87 157/88 157/87 Blood Pressure [Right] O2 Sat by Pulse 100 Oximetry 02/15/18 02/15/18 02/15/18 14:43 14:45 14:46 Temperature Pulse Rate 91 H 93 H 110 H Respiratory Rate Blood Pressure 146/84 143/74 Blood Pressure [Right] O2 Sat by Pulse 100 Oximetry 02/15/18 02/15/18 02/15/18 14:48 14:49 14:51 Temperature Pulse Rate 102 H 89 96 H Respiratory Rate Blood Pressure 141/67 142/75 138/77 Blood Pressure [Right] O2 Sat by Pulse Oximetry 02/15/18 02/15/18 02/15/18 14:59 15:00 15:02 Temperature 97.6 F Pulse Rate 77 81 Respiratory 18 Rate Blood Pressure 99/55 103/57 Blood Pressure [Right] O2 Sat by Pulse Oximetry 02/15/18 02/15/18 02/15/18 15:07 15:10 15:15 Temperature Pulse Rate 81 81 89 Respiratory Rate Blood Pressure 100/56 Blood Pressure [Right] O2 Sat by Pulse 99 98 Oximetry 02/15/18 02/15/18 02/15/18 15:20 15:25 15:30 Temperature Pulse Rate 82 89 86 Respiratory Rate Blood Pressure 111/60 Blood Pressure [Right] O2 Sat by Pulse 99 98 99 Oximetry 02/15/18 02/15/18 02/15/18 15:35 15:39 15:40 Temperature Pulse Rate 80 78 82 Respiratory Rate Blood Pressure 119/66 Blood Pressure [Right] O2 Sat by Pulse 99 98 Oximetry 02/15/18 02/15/18 02/15/18 15:45 15:50 15:55 Temperature Pulse Rate 80 83 81 Respiratory Rate Blood Pressure 135/80 Blood Pressure [Right] O2 Sat by Pulse 99 98 99 Oximetry 02/15/18 02/15/18 02/15/18 16:00 16:05 16:10 Temperature Pulse Rate 80 84 87 Respiratory Rate Blood Pressure Blood Pressure [Right] O2 Sat by Pulse 98 99 100 Oximetry 02/15/18 02/15/18 02/15/18 16:11 16:15 16:20 Temperature Pulse Rate 82 88 83 Respiratory Rate Blood Pressure 145/85 Blood Pressure [Right] O2 Sat by Pulse 99 100 Oximetry 02/15/18 02/15/18 02/15/18 16:25 16:30 16:35 Temperature Pulse Rate 80 81 86 Respiratory Rate Blood Pressure 156/93 Blood Pressure [Right] O2 Sat by Pulse 100 100 99 Oximetry 02/15/18 02/15/18 02/15/18 16:40 16:45 16:50 Temperature Pulse Rate 81 84 87 Respiratory Rate Blood Pressure 165/96 157/90 Blood Pressure [Right] O2 Sat by Pulse 99 100 99 Oximetry 02/15/18 02/15/18 02/15/18 16:55 16:57 17:00 Temperature Pulse Rate 89 86 90 Respiratory Rate Blood Pressure 144/81 Blood Pressure [Right] O2 Sat by Pulse 99 99 Oximetry 02/15/18 02/15/18 02/15/18 17:04 17:05 17:10 Temperature 97.1 F L Pulse Rate 83 86 Respiratory 18 Rate Blood Pressure Blood Pressure [Right] O2 Sat by Pulse 99 98 Oximetry 02/15/18 02/15/18 02/15/18 17:11 17:15 17:20 Temperature Pulse Rate 81 88 87 Respiratory Rate Blood Pressure 133/75 Blood Pressure [Right] O2 Sat by Pulse 98 98 Oximetry 02/15/18 02/15/18 02/15/18 17:25 17:30 17:35 Temperature Pulse Rate 93 H 86 90 Respiratory Rate Blood Pressure 126/69 Blood Pressure [Right] O2 Sat by Pulse 99 99 98 Oximetry 02/15/18 02/15/18 02/15/18 17:40 17:41 17:45 Temperature Pulse Rate 98 H 93 H 97 H Respiratory Rate Blood Pressure 130/74 Blood Pressure [Right] O2 Sat by Pulse 100 100 Oximetry 02/15/18 02/15/18 02/15/18 17:50 17:55 17:56 Temperature Pulse Rate 89 86 82 Respiratory Rate Blood Pressure 127/72 Blood Pressure [Right] O2 Sat by Pulse 99 99 Oximetry 02/15/18 02/15/18 02/15/18 18:00 18:05 18:10 Temperature Pulse Rate 89 88 87 Respiratory Rate Blood Pressure 124/71 Blood Pressure [Right] O2 Sat by Pulse 99 99 99 Oximetry 02/15/18 02/15/18 02/15/18 18:15 18:20 18:25 Temperature Pulse Rate 83 86 85 Respiratory Rate Blood Pressure 127/72 Blood Pressure [Right] O2 Sat by Pulse 98 99 99 Oximetry 02/15/18 02/15/18 02/15/18 18:30 18:35 18:40 Temperature Pulse Rate 88 89 90 Respiratory Rate Blood Pressure 128/71 Blood Pressure [Right] O2 Sat by Pulse 99 99 99 Oximetry 02/15/18 02/15/18 02/15/18 18:45 18:50 18:55 Temperature Pulse Rate 89 86 88 Respiratory Rate Blood Pressure Blood Pressure [Right] O2 Sat by Pulse 99 98 99 Oximetry 02/15/18 02/15/18 02/15/18 18:56 19:00 19:05 Temperature Pulse Rate 88 95 H 95 H Respiratory Rate Blood Pressure 130/73 Blood Pressure [Right] O2 Sat by Pulse 99 99 Oximetry 02/15/18 02/15/18 02/15/18 19:10 19:12 19:15 Temperature Pulse Rate 90 97 H 86 Respiratory Rate Blood Pressure 138/90 Blood Pressure [Right] O2 Sat by Pulse 100 99 Oximetry 02/15/18 02/15/18 02/15/18 19:20 19:25 19:30 Temperature Pulse Rate 87 88 85 Respiratory Rate Blood Pressure 149/91 Blood Pressure [Right] O2 Sat by Pulse 99 99 99 Oximetry 02/15/18 02/15/18 02/15/18 19:35 19:40 19:41 Temperature 98.3 F Pulse Rate 92 H 82 86 Respiratory 18 Rate Blood Pressure 123/72 Blood Pressure 130/76 [Right] O2 Sat by Pulse 99 99 Oximetry 02/15/18 02/15/18 02/15/18 19:45 19:50 19:54 Temperature Pulse Rate 83 86 81 Respiratory Rate Blood Pressure 130/76 Blood Pressure [Right] O2 Sat by Pulse 99 99 Oximetry 02/15/18 02/15/18 02/15/18 19:55 20:00 20:05 Temperature Pulse Rate 82 85 85 Respiratory Rate Blood Pressure Blood Pressure [Right] O2 Sat by Pulse 99 99 99 Oximetry 02/15/18 02/15/18 02/15/18 20:10 20:15 20:20 Temperature Pulse Rate 95 H 85 83 Respiratory Rate Blood Pressure 117/61 Blood Pressure [Right] O2 Sat by Pulse 100 99 99 Oximetry 02/15/18 02/15/18 02/15/18 20:25 20:30 20:35 Temperature Pulse Rate 93 H 84 84 Respiratory Rate Blood Pressure 136/82 Blood Pressure [Right] O2 Sat by Pulse 99 99 99 Oximetry 02/15/18 02/15/18 02/15/18 20:40 20:45 20:50 Temperature Pulse Rate 97 H 85 84 Respiratory Rate Blood Pressure 132/75 Blood Pressure [Right] O2 Sat by Pulse 98 99 98 Oximetry 02/15/18 02/15/18 02/15/18 20:55 20:56 21:00 Temperature Pulse Rate 89 81 83 Respiratory Rate Blood Pressure 129/81 Blood Pressure [Right] O2 Sat by Pulse 99 98 Oximetry 02/15/18 02/15/18 02/15/18 21:05 21:09 21:10 Temperature Pulse Rate 88 79 87 Respiratory Rate Blood Pressure 128/77 Blood Pressure [Right] O2 Sat by Pulse 98 98 Oximetry 02/15/18 02/15/18 02/15/18 21:15 21:20 21:25 Temperature Pulse Rate 91 H 86 88 Respiratory Rate Blood Pressure 115/62 Blood Pressure [Right] O2 Sat by Pulse 98 98 98 Oximetry 02/15/18 02/15/18 02/15/18 21:30 21:35 21:40 Temperature Pulse Rate 86 85 84 Respiratory Rate Blood Pressure Blood Pressure [Right] O2 Sat by Pulse 98 98 98 Oximetry 02/15/18 02/15/18 02/15/18 21:41 21:45 21:50 Temperature Pulse Rate 79 91 H 93 H Respiratory Rate Blood Pressure 133/81 Blood Pressure [Right] O2 Sat by Pulse 97 98 Oximetry 02/15/18 02/15/18 02/15/18 21:55 21:59 22:00 Temperature Pulse Rate 89 94 H 91 H Respiratory Rate Blood Pressure 148/62 Blood Pressure [Right] O2 Sat by Pulse 97 98 Oximetry - Exam Breasts: normal Cardiovascular: Regular rate Lungs: Clear to auscultation, Normal air movement Abdomen: Present: normal appearance, soft Vulva: both: normal Uterus: Present: normal Uterine Contraction Monitor Mode: Internal Cervical Dilatation: 3 (no change since 1899) Cervical Effacement Percentage: 80 station: -1 Uterine Contraction Frequency (min): 2-3 Uterine Contraction Duration: 60 Uterine Contraction Pattern: Regular Uterine Tone Measurement Phase: Contraction Uterine Contraction Intensity: Strong/Firm Extremities: normal - Labs Labs: Abnormal Labs 02/13/18 02/13/18 02/13/18 16:10 17:08 17:10 Hgb 15.0 H MCHC 36 H Plt Count Seg Neutrophils % 73.4 H Creatinine 0.5 L Magnesium 2.90 H AST 47 H ALT Lactate Dehydrogenase 420 H 02/14/18 02/14/18 02/14/18 00:34 06:43 06:43 Hgb MCHC 35 H Plt Count Seg Neutrophils % Creatinine Magnesium 4.30 H 4.60 H AST ALT Lactate Dehydrogenase 02/14/18 02/14/18 02/15/18 06:43 17:12 06:06 Hgb MCHC 36 H Plt Count 139 L Seg Neutrophils % Creatinine 0.5 L Magnesium 5.10 H AST 87 H ALT 81 H Lactate Dehydrogenase 533 H 02/15/18 02/15/18 02/15/18 06:06 06:06 12:28 Hgb MCHC Plt Count Seg Neutrophils % Creatinine 0.6 L Magnesium 4.70 H 5.00 H AST ALT Lactate Dehydrogenase 02/15/18 19:18 Hgb MCHC Plt Count Seg Neutrophils % Creatinine Magnesium 5.70 H AST ALT Lactate Dehydrogenase Laboratory Results - last 24 hr 02/15/18 02/15/18 02/15/18 06:06 06:06 06:06 WBC 10.9 RBC 4.19 Hgb 13.1 Hct 36.4 MCV 87 MCH 31 MCHC 36 H RDW 14.7 Plt Count 139 L Creatinine 0.6 L Estimated GFR > 60 Magnesium 4.70 H AST 25 ALT 52 02/15/18 02/15/18 12:28 19:18 WBC RBC Hgb Hct MCV MCH MCHC RDW Plt Count Creatinine Estimated GFR Magnesium 5.00 H 5.70 H AST ALT
--- NOTE | 2018-02-15 22:58 | Event Note ---
Date: 02/15/18 Pt advised of arrest of labor. She has had adequate contractions with no cervical change. I d/w operative delivery of the IUFD via hysterotomy. She states she would like to discuss it with her mother. Provider explained risk, benefits, and alternatives to pt and family. All questions were addressed and answered. Currently no more temps and bp stable on magnesium and bp meds. Mec noted on exam.No foul odor on exam. Will re-evaluate once pt has made a decision regarding c/s vs continued IOL.
[2018-02-15] MEDS ORDERED: REGLAN IV ONE (23:00)
[2018-02-15] MEDS ORDERED: BICITRA PO ONE (23:00)
[2018-02-15] MEDS ORDERED: PEPCID IV ONE (23:00)
[2018-02-15] MEDS ORDERED: ANCEF/STERILE WATER 2 GM/20 ML 2 GM/20 ML SYRINGE IV NR (23:00)
[2018-02-15] MEDS ORDERED: CYTOTEC PR ONE (23:03)
[2018-02-15] MEDS ORDERED: HEMABATE IM ONE (23:03)
[2018-02-15] MEDS ORDERED: XYLOCAINE MPF 2% ONE (23:52)
[2018-02-16] MEDS ORDERED: WATER FOR IRRIG STERILE IR ONE
[2018-02-16] MEDS ORDERED: NACL 0.9% IR ONE
[2018-02-16] MEDS ORDERED: LOMOTIL PO ONE (00:35)
[2018-02-16] MEDS ORDERED: ASTRAMORPH PF 10MG/10ML ONE (00:43)
[2018-02-16] MEDS ORDERED: TUCKS PAD TP PRN (01:07)
[2018-02-16] MEDS ORDERED: LANSINOH TP PRN (01:07)
[2018-02-16] MEDS ORDERED: NARCAN 0.4 MG/1 ML IV PRN ×2 (01:07→01:13)
[2018-02-16] MEDS ORDERED: PHENERGAN PR PRN (01:13)
[2018-02-16] MEDS ORDERED: PHENERGAN PO PRN (01:13)
[2018-02-16] MEDS ORDERED: ZOFRAN IV PRN (01:13)
--- NOTE | 2018-02-16 01:33 | Operative Report ---
Operative Report Operative Report: Date of procedure: 02/16/2018 Pre-operative diagnosis: 39 weeks gestation Severe preeclampsia Intrauterine demise Insufficient care in her third trimester Post-operative diagnosis: Same Procedure name(s): Primary low transverse section via Pfannenstiel skin incision Surgeon: Dr. Murillo Coupon Clerk: LEONID Anesthesia: Epidural EBL: 600 mL Urine output: 200 mL of clear urine out at the end of procedure Fluids: 1300 mL Findings: Nonviable male weight is unknown to me at this time Grossly normal fallopian tubes and ovaries bilaterally X Conium stained placenta What appears to be clotting in the umbilical cord Overlapping sutures of skull, slippage of skin on fetus Indications: Patient presented to the hospital in severe abdominal pain with severely elevated blood pressures. No heart tones were obtained upon admission. Sonogram confirmed intrauterine demise. Patient then underwent serial induction for severe preeclampsia with intrauterine demise. Patient progressed approximately 3 cm without any cervical change or descent of head. Patient was given the option to continue with induction versus primary section. Patient desired to have primary section after 2-1/2 days of induction of labor. Procedure: Patient was taking to the operating room. Patient was then prepped and draped in sterile fashion after anesthesia was found to be adequate. A low transverse skin incision was made with the scalpel and carried down to the underlying layer of fascia with the Bovie. The fascia was then incised in the midline and this incision was extended bilaterally with the Bovie. The superior aspect of the fascia was grasped with Jose clamps tented upward and dissected off of the anterior rectus muscles with the scalpel. In similar fashion the inferior aspect of the fascia was grasped with Jose clamps tented upward and dissected off of the anterior rectus muscles. The rectus muscles were then bluntly divided in the midline. The peritoneum was identified and entered into sharply. The bladder blade was placed. The bladder flap was created using the Metzenbaum scissors. The bladder blade was replaced. A lower transverse uterine incision was made with the scalpel and extended bilaterally with dissection. The infant's head was then delivered atraumatically. The anterior shoulder and rest of infant delivered without difficulty. The umbilical cord was clamped x2. The cord was cut. The was then placed in sterile bassinet. The placenta was manually extracted in its entirety. The uterus was exteriorized and cleared of all clots and debris. The uterine incision was closed using 0 Vicryl in a running locking fashion. A second imbricating layer of the same suture was then created. The posterior cul -de-sac was copiously irrigated. The uterus was returned to the abdomen. The gutters were also irrigated. The anterior rectus muscles were reapproximated using 3-0 Vicryl. The anterior rectus fascia was reapproximated using 0 Vicryl in a running fashion. The subcuticular fat was reapproximated using 2-0 Vicryl in a running fashion. The skin was reapproximated with 4-0 Monocryl in a subcuticular stitch. The patient tolerated the procedure well. Sponge lap and needle counts were all correct x3. Patient was taken to the recovery room awake and in stable condition.
[2018-02-16] MEDS: TORADOL IV PRN ×3 (01:38→18:39)
[2018-02-16] MEDS ORDERED: PITOCin/NS 20 UNIT/1000ML DRIP 20 UNITS/1,000 ML BAG IV SCH (02:00)
[2018-02-16] MEDS ORDERED: ANCEF/NS 1 GM/50 ML 1 GM/50 ML BAG IV SCH (02:00)
[2018-02-16] MEDS ORDERED: SODIUM CHLORIDE FLUSH SYRINGE 10 ML IV NR (02:00)
[2018-02-16] MEDS ORDERED: D5LR 1,000 ML IV SCH (02:00)
[2018-02-16] MEDS ORDERED: SODIUM CHLORIDE FLUSH SYRINGE 10 ML IV PRN (02:00)
[2018-02-16] MEDS: MAGNESIUM SULFATE 40GM/1000ML 40 GM/1,000 ML BAG IV SCH (02:12)
[2018-02-16] MEDS: DILAUDID IV PRN (02:53)
[2018-02-16] MEDS ORDERED: XYLOCAINE MPF 2% ONE (07:30)
[2018-02-16] MEDS ORDERED: BENADRYL IV NR (09:49)
[2018-02-16] MEDS ORDERED: BENADRYL PO PRN (09:50)
[2018-02-16] MEDS: PROCARDIA XL PO SCH (10:07)
--- NOTE | 2018-02-16 11:18 | Progress Note ---
Assessment and Plan - Patient Problems (1) Severe pre-eclampsia Onset Date: ~02/13/18 Current Visit: Yes Status: Acute Qualifiers: Trimester: third trimester Qualified Code(s): O14.13 - Severe pre-eclampsia , third trimester Plan to address problem: Continue MgSO4 per Preeclampsia protocol. Plan of care explained, questions answered she voiced understanding (2) delivery delivered Current Visit: Yes Status: Acute Plan to address problem: Continue c/s pathway (3) IUFD (intrauterine ) Onset Date: ~02/13/18 Current Visit: Yes Status: Acute (4) Skin abrasion Current Visit: Yes Status: Acute Plan to address problem: silvadene cream (5) 39 weeks gestation of Current Visit: Yes Status: Acute (6) Insufficient care in third trimester Onset Date: ~02/13/18 Current Visit: Yes Status: Acute (7) Placenta abruptio Current Visit: Yes Status: Acute Subjective - Subjective Date of service: 02/16/18 Principal diagnosis: DOD c/s; IUFD, preeclampsia Interval history: Patientrestingin bed, alert and appropriately responsive. SCD's are off d/t itching, no other complaints Patient reports: appetite normal Objective - Vital Signs Latest vital signs: Vital Signs Temp Pulse Resp BP BP Pulse Ox 02/16/18 10:08 100 H 125/85 02/16/18 08:36 18 02/16/18 08:15 98.6 F 92 H 20 131/74 99 02/16/18 06:48 98.4 F 105 H 20 174/92 100 02/16/18 04:35 98.3 F 20 145/94 02/16/18 02:53 23 02/16/18 02:50 99.3 F 85 14 141/89 99 02/16/18 02:40 83 18 139/84 100 02/16/18 02:25 83 17 146/90 100 02/16/18 02:10 86 16 144/86 100 02/16/18 01:55 93 H 16 151/97 100 02/16/18 01:40 89 19 141/86 100 02/16/18 01:38 18 02/16/18 01:25 97 H 17 148/87 100 02/16/18 01:10 94 H 14 145/89 100 02/16/18 01:05 92 H 18 135/86 99 05/26/18 01:00 99.0 F 89 18 123/86 100 05/25/18 23:25 91 H 159/71 99 05/25/18 23:20 98 H 99 05/25/18 23:15 91 H 99 05/25/18 23:10 90 137/63 99 05/25/18 23:05 108 H 99 05/25/18 23:00 87 98 05/25/18 22:56 90 137/63 05/25/18 22:55 89 98 05/25/18 22:50 95 H 99 05/25/18 22:45 91 H 99 05/25/18 22:40 80 139/74 98 05/25/18 22:35 79 99 05/25/18 22:30 79 98 05/25/18 22:25 78 144/69 98 05/25/18 22:20 78 98 05/25/18 22:15 82 98 05/25/18 22:11 80 132/68 05/25/18 22:10 78 98 05/25/18 22:05 92 H 99 05/25/18 22:00 91 H 98 05/25/18 21:59 94 H 148/62 05/25/18 21:55 89 97 05/25/18 21:50 93 H 98 05/25/18 21:45 91 H 97 05/25/18 21:41 79 133/81 05/25/18 21:40 84 98 05/25/18 21:35 85 98 05/25/18 21:30 86 98 05/25/18 21:25 88 115/62 98 05/25/18 21:20 86 98 05/25/18 21:15 91 H 98 05/25/18 21:10 87 98 05/25/18 21:09 79 128/77 05/25/18 21:05 88 98 05/25/18 21:00 83 98 05/25/18 20:56 81 129/81 05/25/18 20:55 89 99 05/25/18 20:50 84 98 05/25/18 20:45 85 99 05/25/18 20:40 97 H 132/75 98 05/25/18 20:35 84 99 05/25/18 20:30 84 99 05/25/18 20:25 93 H 136/82 99 05/25/18 20:20 83 99 05/25/18 20:15 85 99 05/25/18 20:10 95 H 117/61 100 05/25/18 20:05 85 99 05/25/18 20:00 85 99 05/25/18 19:55 82 99 05/25/18 19:54 81 130/76 05/25/18 19:50 86 99 05/25/18 19:45 83 99 05/25/18 19:41 86 123/72 05/25/18 19:40 98.3 F 82 18 130/76 99 05/25/18 19:35 92 H 99 05/25/18 19:30 85 99 05/25/18 19:25 88 149/91 99 05/25/18 19:20 87 99 05/25/18 19:15 86 99 05/25/18 19:12 97 H 138/90 05/25/18 19:10 90 100 05/25/18 19:05 95 H 99 05/25/18 19:00 95 H 99 05/25/18 18:56 88 130/73 05/25/18 18:55 88 99 05/25/18 18:50 86 98 05/25/18 18:45 89 99 05/25/18 18:40 90 128/71 99 05/25/18 18:35 89 99 05/25/18 18:30 88 99 05/25/18 18:25 85 127/72 99 05/25/18 18:20 86 99 05/25/18 18:15 83 98 05/25/18 18:10 87 124/71 99 05/25/18 18:05 88 99 05/25/18 18:00 89 99 05/25/18 17:56 82 127/72 05/25/18 17:55 86 99 05/25/18 17:50 89 99 05/25/18 17:45 97 H 100 05/25/18 17:41 93 H 130/74 05/25/18 17:40 98 H 100 05/25/18 17:35 90 98 05/25/18 17:30 86 99 05/25/18 17:25 93 H 126/69 99 05/25/18 17:20 87 98 05/25/18 17:15 88 98 05/25/18 17:11 81 133/75 05/25/18 17:10 86 98 05/25/18 17:05 83 99 05/25/18 17:04 97.1 F L 18 05/25/18 17:00 90 99 05/25/18 16:57 86 144/81 05/25/18 16:55 89 99 05/25/18 16:50 87 157/90 99 05/25/18 16:45 84 100 05/25/18 16:40 81 165/96 99 05/25/18 16:35 86 99 05/25/18 16:30 81 100 05/25/18 16:25 80 156/93 100 05/25/18 16:20 83 100 05/25/18 16:15 88 99 05/25/18 16:11 82 145/85 05/25/18 16:10 87 100 05/25/18 16:05 84 99 05/25/18 16:00 80 98 05/25/18 15:55 81 135/80 99 05/25/18 15:50 83 98 05/25/18 15:45 80 99 05/25/18 15:40 82 98 05/25/18 15:39 78 119/66 05/25/18 15:35 80 99 05/25/18 15:30 86 99 05/25/18 15:25 89 111/60 98 05/25/18 15:20 82 99 05/25/18 15:15 89 98 05//18 15:10 81 99 05/25/18 15:07 81 100/56 05/25/18 15:02 81 103/57 05/25/18 15:00 97.6 F 18 05//18 14:59 77 99/55 05/25/18 14:51 96 H 138/77 05/25/18 14:49 89 142/75 05/25/18 14:48 102 H 141/67 05/25/18 14:46 110 H 100 05/25/18 14:45 93 H 143/74 05/25/18 14:43 91 H 146/84 05/25/18 14:41 93 H 157/87 100 05/25/18 14:39 99 H 157/88 05/25/18 14:38 96 H 168/87 05/25/18 14:36 94 H 100 05/25/18 14:27 93 H 139/71 05/25/18 14:12 95 H 151/79 02/15/18 13:57 95 H 145/74 02/15/18 13:56 88 147/75 02/15/18 13:14 77 108/54 02/15/18 12:58 80 122/59 02/15/18 12:42 83 128/67 02/15/18 12:27 82 130/69 02/15/18 12:12 85 121/59 02/15/18 11:59 84 125/61 02/15/18 11:51 95 H 100 02/15/18 11:46 94 H 100 02/15/18 11:41 96 H 100 02/15/18 11:36 94 H 100 02/15/18 11:31 100 H 100 02/15/18 11:30 98.2 F 18 02/15/18 11:26 101 H 100 02/15/18 11:21 94 H 100 Intake and Output 02/15/18 02/16/18 02/16/18 22:59 06:59 14:59 Intake Total 84.467 2885 Output Total 800 2900 Balance -715.533 -15 Intake: IV 84.467 2285 MAGNESIUM SULFATE 40GM/ 935 1000ML 40 gm In 1,000 ml @ 2 GM/HR 50 mls/hr IV DIRECT JOSE Rx#:[id number] PITOCin/NS 30 UNIT/500ML 84.467 30 units In 500 ml @ 4 mls/hr IV TITR JOSE Rx#: [id number] Oral 240 Intake, Free Water 360 Output: Urine 800 2900 Indwelling Catheter 800 1000 Uretheral ([place]) 200 Other: Total, Intake Amount 240 Total, Output Amount 100 300 Estimated Blood Loss 600 - Exam Breasts: Present: deferred Cardiovascular: Present: Regular rate Lungs: Present: Clear to auscultation, Normal air movement Abdomen: Present: other (obese). Absent: tenderness Uterus: Present: other (unable to palpate d/t obesity) Extremities: Present: edema (1+) Incision: Present: other (abrasion from tape removal (R) medial decubital ), dressed - Labs Labs: Abnormal lab results 02/15/18 02/15/18 02/16/18 Range/Units 12:28 19:18 05:36 Magnesium 5.00 H 5.70 H 4.80 H (1.7-2.3) mg/dL
[2018-02-16] MEDS: ceFAZolin 1 GM in NACL 0.9% 20 ML IV SCH ×2 (11:27→20:05)
[2018-02-16 15:09] LABS: Hematocrit 33.8 % (30.3-42.9); Hemoglobin 11.3 gm/dl (10.1-14.3)
[2018-02-16] MEDS: THERMAZENE 50 GRAM TP SCH (15:54)
[2018-02-16] MEDS: NORCO 5/325 PO PRN (23:08)
[2018-02-17] MEDS: TORADOL IV PRN (00:31)
[2018-02-17] MEDS: DILAUDID IV PRN (02:30)
--- NOTE | 2018-02-17 05:47 | Progress Note ---
Assessment and Plan - Patient Problems (1) Severe pre-eclampsia Onset Date: ~02/13/18 Current Visit: Yes Status: Acute Qualifiers: Trimester: third trimester Qualified Code(s): O14.13 - Severe pre-eclampsia , third trimester Plan to address problem: MGSO4 completed. Pt w/o SANCHEZ, blurred vision, chest pain. Pt's c/o heaviness in her arms and head. Pt has full ROM, neuro check intact. Will reassess once Tatum is removed and pt ambulates. Pt appears in good spirits. Appropriate affect. BP 120s/70s Pulse slightly high 100s RRR. Afebrile. Dressing D&I to be removed when tatum is removed. H&H No s/sx of anemia. Doing well s/p c/s; demise. P: continue pathway Adv diet and activity as tolerated. D/C tomorrow if stable. 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 of genital herpes: no Partner hx. of genital herpes: no Rash, Viral, or Febrile illness since last LMP? no Varicella/Chicken Pox Status: Immunized TB Risk: no Genetic History Congenital Heart Defect: Mom: no Dad: no Jey Disease: Mom: no Dad: no Thalassemia Mom: no Dad: no Neural Tube Defect Mom: no Dad: no Down's Syndrome Mom: no Dad: no Misael-Sachs Mom: no Dad: no Sickle Cell Disease/Trait Mom: no Dad: no Hemophilia Mom: no Dad: no Muscular Dystrophy Mom: no Dad: no Cystic Fibrosis Mom: no Dad: no [place] Chorea Mom: no Dad: no Mental Retardation Mom: no Dad: no Fragile X Mom: no Dad: no Other Genetic/Chromosomal Disorder Mom: no Dad: no Child w/other defect Mom: no Dad: no Enviromental Exposures Xray Exposure: no Medication, drug, or alcohol use since LMP: no Chemical/Other Exposure: no Exposure to Cat Liter: no Hx of Parvovirus (Fifth Disease): no Occupational Exposure to Children: none Active Medications (reviewed today): None Current Allergies (reviewed today): * LATEX (Critical) * SEAFOOD (Critical) Laboratory Results Date/Time Collected: 12/31/2017 Routine Urinalysis Protein: Trace Glucose: Negative Urine HCG: positive Review of Systems General Denies fever, chills, sweats, anorexia, fatigue, weakness, malaise, weight loss and sleep disorder. Denies nausea, vomiting, headache, swelling of legs, abdominal pain, vaginal discharge, vaginal bleeding and contractions. Denies vaginal discharge, incontinence, dysuria, hematuria, urinary frequency, amenorrhea, menorrhagia, abnormal vaginal bleeding, pelvic pain, genital sores, decreased libido, painful periods, painful sex, urinary urgency, hot flashes, vaginal dryness, vaginal itching and vaginal odor. CV Denies chest pains, palpitations, syncope, dyspnea on exertion, orthopnea, PND and peripheral edema. Resp Denies cough, dyspnea at rest, excessive sputum, hemoptysis, wheezing and pleurisy. GI Denies nausea, vomiting, diarrhea, constipation, change in bowel habits, abdominal pain, melena, hematochezia, jaundice, gas/bloating, indigestion/ heartburn, dysphagia and odynophagia. Endo Denies cold intolerance, heat intolerance, polydipsia, polyphagia, polyuria and unusual weight change. Breast Denies left breast lump, right breast lump, nipple discharge, bloody discharge from nipple, breast pain, abnormal mammogram and breast enlargement. MS Denies back pain, joint pain, joint swelling, muscle cramps, muscle weakness, stiffness, arthritis, sciatica, restless legs, leg pain at night and leg pain with exertion. Derm Denies rash, itching, dryness and suspicious lesions. Neuro Denies paralysis, paresthesias, headache, seizures, tremors, vertigo, transient blindness, frequent falls, frequent headaches and difficulty walking. Psych Denies depression, anxiety, irritability and mood swings. Eyes Denies blurring, diplopia, irritation, discharge, vision loss, eye pain and photophobia. ENT Denies earache, ear discharge, tinnitus, decreased hearing, nasal congestion, nosebleeds, sore throat and hoarseness. Allergy Denies urticaria, allergic rash, hay fever and recurrent infections. Heme Denies abnormal bruising, bleeding and enlarged lymph nodes. 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 Vulva/Vagina: No lesions, normal BUS, normal rugae Cervix: No lesions; no cervical motion tenderness Uterus: normal size and position, midline, mobile Fundal Ht: 31 Adnexae: no masses or tenderness Rectovaginal: no masses or tenderness Patient reports: appetite normal, voiding normally (tatum to be removed this AM) , pain well controlled, flatus [place]: Objective - Vital Signs Latest vital signs: Vital Signs Temp Pulse Resp BP BP Pulse Ox 02/17/18 02:03 98.2 F 109 H 18 129/79 02/16/18 22:06 98.8 F 96 H 20 124/76 02/16/18 20:03 97.6 F 93 H 20 124/73 100 02/16/18 18:39 20 02/16/18 18:25 98.8 F 108 H 22 157/90 100 02/16/18 16:05 99.3 F 104 H 20 138/76 97 02/16/18 14:11 98.3 F 97 H 20 127/71 97 02/16/18 12:05 99.1 F 100 H 20 117/68 100 02/16/18 10:08 100 H 125/85 02/16/18 08:36 18 02/16/18 08:15 98.6 F 92 H 20 131/74 99 02/16/18 06:48 98.4 F 105 H 20 174/92 100 Intake and Output 02/16/18 02/16/18 02/17/18 14:59 22:59 06:59 Intake Total 360 480 Output Total 300 1450 Balance 60 -970 Intake: Oral 360 120 Intake, Free Water 360 Output: Urine 300 1450 Indwelling Catheter 300 1450 Other: Total, Intake Amount 120 120 Total, Output Amount 300 700 - Exam Breasts: Present: normal Cardiovascular: Present: Regular rate Lungs: Present: Clear to auscultation, Normal air movement Abdomen: Present: normal appearance, soft, normal bowel sounds Uterus: Present: normal, fundal height below umbilicus Extremities: Present: normal, edema Deep Tendon Reflex Grade: Normal +2 Incision: Present: normal, dry, intact, dressed (to be removed this AM) - Labs Labs: Abnormal lab results 02/16/18 02/16/18 02/16/18 Range/Units 05:36 14:48 21:46 Magnesium 4.80 H 5.00 H 4.70 H (1.7-2.3) mg/dL 02/17/18 Range/Units 00:29 Magnesium 3.70 H (1.7-2.3) mg/dL
[2018-02-17] MEDS ORDERED: BOOSTRIX IM ONE (06:00)
[2018-02-17] MEDS: MOTRIN PO PRN ×2 (10:00→16:59)
[2018-02-17] MEDS: PROCARDIA XL PO SCH (10:01)
[2018-02-17] MEDS: NORCO 5/325 PO PRN ×2 (17:00→21:50)
[2018-02-17] MEDS ORDERED: COLACE PO PRN (18:04)
[2018-02-18] MEDS: MOTRIN PO PRN ×3 (01:29→18:05)
[2018-02-18] MEDS: NORCO 5/325 PO PRN ×3 (09:37→21:18)
[2018-02-18] MEDS: PROCARDIA XL PO SCH (09:38)
[2018-02-18] MEDS: THERMAZENE 50 GRAM TP SCH (09:39)
--- NOTE | 2018-02-18 10:43 | Progress Note ---
Assessment and Plan - Patient Problems (1) delivery delivered Onset Date: ~02/16/18 Current Visit: Yes Status: Acute Plan to address problem: Patient tolerating regular diet and has has flatus. Offered patient on discharge today, the patient's desires discharge her tomorrow. Will continue routine care (2) IUFD (intrauterine ) Onset Date: ~02/13/18 Current Visit: Yes Status: Chronic (3) Insufficient care in third trimester Onset Date: ~02/13/18 Current Visit: Yes Status: Acute (4) Severe pre-eclampsia Onset Date: ~02/13/18 Current Visit: Yes Status: Resolved Qualifiers: Trimester: third trimester Qualified Code(s): O14.13 - Severe pre-eclampsia , third trimester Plan to address problem: Improved with antihypertensive. Anticipate discharge with current antihypertensive Subjective - Subjective Principal diagnosis: POD#2 c/s; IUFD, preeclampsia Patient reports: appetite normal, voiding normally, pain well controlled, flatus , ambulating normally [place]: Objective - Vital Signs Latest vital signs: Vital Signs Temp Pulse Resp BP BP Pulse Ox 02/18/18 09:37 20 02/18/18 08:50 98.9 F 103 H 20 129/88 02/18/18 05:05 98.0 F 93 H 20 124/80 100 02/18/18 01:29 98.1 F 88 20 137/77 99 02/17/18 21:50 20 02/17/18 20:23 99.1 F 20 124/77 02/17/18 17:59 98.5 F 18 147/91 100 02/17/18 17:51 97 H 100 02/17/18 12:01 99 F 100 H 18 141/79 02/17/18 11:36 102 H 100 Intake and Output 02/17/18 02/18/18 02/18/18 22:59 06:59 14:59 Intake Total 100 480 120 Output Total 500 200 400 Balance -400 280 -280 Intake: Oral 100 120 120 Intake, Free Water 360 Output: Urine 500 200 400 Void 300 200 400 Other: Total, Intake Amount 120 120 Total, Output Amount 100 200 400 Voiding Method Toilet # Voids 1 Void 1 - Exam Breasts: Present: deferred Cardiovascular: Present: Regular rate Lungs: Present: Normal air movement Abdomen: Present: normal appearance, tenderness (appropriate postop), normal bowel sounds Uterus: Present: firm, fundal height below umbilicus Extremities: Present: edema Incision: Present: normal, intact
[2018-02-19] MEDS: NORCO 5/325 PO PRN ×2 (06:34→13:07)
--- NOTE | 2018-02-19 08:11 | Discharge Summary ---
Providers - Providers Date of Admission: 02/13/18 20:58 Date of discharge: 02/19/18 (desires d/c home today) Attending physician: PAULINA SEQUEIRA 02/19/18 08:02 Consult to Mental Health [CONS] Routine Reason For Exam: demise, high risk postprtum depression Place consult to:: Misa Primary care physician: PAULINA SEQUEIRA Hospitalization Reason for admission: pre-e, demise Condition: Good Pertinent studies: postop H&H 11.3/33.8 Procedures: primary c/s Hospital course: uncomplicated c/s and course Disposition: DC- TO HOME OR SELFCARE - Discharge Diagnoses (1) IUFD (intrauterine ) Status: Chronic (2) Severe pre-eclampsia Status: Resolved Qualifiers: Trimester: third trimester Qualified Code(s): O14.13 - Severe pre-eclampsia , third trimester (3) delivery delivered Status: Acute Core Measure Documentation - Palliative Care Palliative Care/ Comfort Measures: Not Applicable - Core Measures Any of the following diagnoses?: none Exam - Constitutional Vitals: Temp Pulse Resp BP Pulse Ox 98.4 F 95 H 16 129/74 100 02/19/18 05:02 02/19/18 05:02 02/19/18 05:02 02/19/18 05:02 02/19/18 00:42 General appearance: Present: no acute distress, well-nourished - EENT Eyes: Present: PERRL ENT: hearing intact, clear oral mucosa - Neck Neck: Present: supple, normal ROM - Respiratory Respiratory effort: normal Respiratory: bilateral: CTA - Cardiovascular Heart Sounds: Present: S1 & S2. Absent: rub, click - Extremities Extremities: pulses symmetrical, No edema Peripheral Pulses: within normal limits - Abdominal General gastrointestinal: Present: soft, non-tender, non-distended, normal bowel sounds Female genitourinary: Present: normal - Integumentary Integumentary: Present: clear, warm, dry - Musculoskeletal Musculoskeletal: gait normal, strength equal bilaterally - Psychiatric Psychiatric: appropriate mood/affect, intact judgment & insight - Neurologic Neurologic: CNII-XII intact, moves all extremities - Additional findings Additional findings: Lochia scant, fundus firm, incision D&I, VSSAF, H&H stable Plan Activity: advance as tolerated Diet: regular Wound: open to air, keep clean and dry Follow up with: PAULINA SEQUEIRA MD [Primary Care Provider] - 02/26/18 2:30 pm (Please call the office with any questions or concerns. An appointment has been scheduled for February 26 @ 2:30PM in our [place] office with Yesi. ) Prescriptions: Ibuprofen 800 mg PO Q6HR #30 tablet NIFEdipine XL [Procardia Xl] 30 mg PO QDAY #30 tablet oxyCODONE /ACETAMINOPHEN [Percocet 5/325] 1 tab PO Q4HR #30 tab
[2018-02-19] MEDS: THERMAZENE 50 GRAM TP SCH (10:57)
[2018-02-19] MEDS: PROCARDIA XL PO SCH (10:58)
[2018-02-19 12:59] VITALS: BP 149/108
== END 2018-02-19 14:40 | disposition home or self-care (01) | DRG 765 ==
LOC: TRG 14:31 → LD 15:02 → TRG 20:57 → LD 20:58 → OB 02-16 04:12
PROVIDERS: ADMIT Obstetrics & Gynecology; ATTEND Obstetrics & Gynecology
PROC: 3E0P7VZ Introduction of Hormone into Female Reproductive, Via Natural or Artificial Opening (ICD-10-PCS; 2018-02-13)
PROC: 10D00Z1 Extraction of Products of Conception, Low, Open Approach (ICD-10-PCS; principal; 2018-02-16)
DX: O36.4XX0 Maternal care for intrauterine death, not applicable or unspecified (principal); O45.93 Premature separation of placenta, unspecified, third trimester; O75.2 Pyrexia during labor, not elsewhere classified; O14.14 Severe pre-eclampsia complicating childbirth; Z68.41 Body mass index [BMI] 40.0-44.9, adult; Z3A.39 39 weeks gestation of pregnancy; O75.0 Maternal distress during labor and delivery; Z37.1 Single stillbirth; O99.214 Obesity complicating childbirth; E66.9 Obesity, unspecified; O77.0 Labor and delivery complicated by meconium in amniotic fluid
CPT/HCPCS: 36415; 76815; 81001; 82565; 83615; 83735; 84450; 84460; 84550; 85014; 85018; 85025; 85027; 86592; 86850; 86900; 86901; 88307; J0360; J0595; J0690; J1170; J1200; J1885; J2274; J2405; J2590; J2765; J3010; J3475; J7120; J7121

== ENCOUNTER 2018-07-11 16:08 | Emergency (ER) | payer SELFPAY ==
[2018-07-11 16:16] VITALS: BP 151/102
[2018-07-11] MEDS ORDERED: NORCO 5/325 PO ONE (17:19)
--- NOTE | 2018-07-11 17:20 | Emergency Department Report ---
ED Lower Extremity HPI - General Chief Complaint: Extremity Injury, Lower Stated Complaint: POSSIBLE BROKE BIG TOE Time Seen by Provider: 07/11/18 17:10 Source: patient Mode of arrival: Ambulatory Limitations: No Limitations - History of Present Illness Initial Comments: This is a 28-year-old female who presents with sharp and pain to right great toe for 1 day. She bumped her right foot against a bar in home yesterday and her foot twisted causing her to fall. Patient states she applied ice to area and elevated. She went to work today because she was feeling better. 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 She is now complaining of throbbing pain that is 8 out of 10 on pain scale and intermittent. Patient reports pain lasts for 20 minutes. Pain is primarily on the proximal right great toe. Range of motion is limited due to pain. There is mild swelling. She denies numbness or tingling, loss of consciousness, chest pain, shortness of breath, weakness or paresthesia. MD Complaint: foot injury (right great) Onset/Timin -: days(s) Injury: Toes: Right (great toe) Type of Injury: blunt Place: home Severity: severe Severity scale (0 -10): 8 Improves With: nothing Worsens With: weight bearing, movement, palpation Context: direct blow Associated Symptoms: swelling, able to partially bear weight, ambulatory. denies: snap/pop sensation, numbness, tingling, unable to bear weight Treatments Prior to Arrival: NSAIDS - Related Data Home Medications Medication Instructions Recorded Confirmed Last Taken Pnv 29-1 Tablet 1 tab PO DAILY 02/14/18 02/14/18 1 Day Ago ~02/13/18 Previous Rx's Medication Instructions Recorded Last Taken Type Ibuprofen 800 mg PO Q6HR #30 tablet 02/16/18 Unknown Rx oxyCODONE /ACETAMINOPHEN [Percocet 1 tab PO Q4HR #30 tab 02/16/18 Unknown Rx 5/325] NIFEdipine XL [Procardia Xl] 30 mg PO QDAY #30 tablet 02/19/18 Unknown Rx Naproxen [Naprosyn] 500 mg PO TID #12 tablet 07/11/18 Unknown Rx traMADol [Ultram 50 MG tab] 50 mg PO Q6HR PRN #8 tablet 07/11/18 Unknown Rx Allergies Allergy/AdvReac Type Severity Reaction Status Date / Time latex Allergy Unknown Itching Verified 02/14/18 10:03 shellfish derived AdvReac Swelling Verified 02/14/18 10:05 ED Review of Systems ROS: Stated complaint: POSSIBLE BROKE BIG TOE Other details as noted in HPI Constitutional: denies: chills, fever Respiratory: denies: cough, shortness of breath, wheezing Cardiovascular: denies: chest pain, palpitations Gastrointestinal: denies: abdominal pain, nausea, diarrhea Musculoskeletal: joint swelling (right great toe), arthralgia (right great toe) . denies: back pain Skin: denies: rash, lesions Neurological: denies: headache, weakness, paresthesias Psychiatric: denies: anxiety, depression ED Past Medical Hx - Past Medical History Hx Hypertension: Yes (PIH) Hx Diabetes: No Hx Deep Vein Thrombosis: No Hx Renal Disease: No (PIH) Hx Sickle Cell Disease: No Hx Seizures: No Hx Asthma: Yes Hx COPD: No Hx HIV: No Additional medical history: OBESITY - Surgical History Past Surgical History?: Yes Hx Cholecystectomy: Yes - Social History Smoking Status: Never Smoker Substance Use Type: None - Medications Home Medications: Home Medications Medication Instructions Recorded Confirmed Last Taken Type Pnv 29-1 Tablet 1 tab PO DAILY 02/14/18 02/14/18 1 Day Ago History ~02/13/18 Ibuprofen 800 mg PO Q6HR #30 tablet 02/16/18 Unknown Rx oxyCODONE /ACETAMINOPHEN [Percocet 1 tab PO Q4HR #30 tab 02/16/18 Unknown Rx 5/325] NIFEdipine XL [Procardia Xl] 30 mg PO QDAY #30 tablet 02/19/18 Unknown Rx Naproxen [Naprosyn] 500 mg PO TID #12 tablet 07/11/18 Unknown Rx traMADol [Ultram 50 MG tab] 50 mg PO Q6HR PRN #8 tablet 07/11/18 Unknown Rx ED Physical Exam - General Limitations: No Limitations General appearance: alert, in no apparent distress, obese - Respiratory Respiratory exam: Present: normal lung sounds bilaterally. Absent: respiratory distress - Cardiovascular Cardiovascular Exam: Present: regular rate, normal rhythm. Absent: systolic murmur, diastolic murmur, rubs, gallop - GI/Abdominal GI/Abdominal exam: Present: soft, normal bowel sounds - Expanded Lower Extremity Exam Right Hip exam: Present: normal inspection, full ROM Upper Leg exam: Present: normal inspection, full ROM Knee exam: Present: normal inspection, full ROM Lower Leg exam: Present: normal inspection, full ROM Ankle exam: Present: normal inspection, full ROM Foot/Toe exam: Present: tenderness (tenderness and swelling over the first MTP joint, erythema, limited range of motion and there.), swelling. Absent: full ROM (Limited range of motion secondary pain), abrasion, laceration, ecchymosis, deformity, crepidus, dislocation, erythema, amputation, puncture wound Neuro vascular tendon exam: Present: no vascular compromise Gait: Positive: observed and limited by pain - Neurological Exam Neurological exam: Present: alert, oriented X3 - Psychiatric Psychiatric exam: Present: normal affect, normal mood - Skin Skin exam: Present: warm, dry, intact, normal color. Absent: rash ED Course Vital Signs 07/11/18 16:11 Temperature 98.0 F Pulse Rate 95 H Respiratory 16 Rate Blood Pressure 151/102 O2 Sat by Pulse 99 Oximetry ED Lower Extremity MDM - Radiology Data Radiology results: report reviewed, image reviewed FINAL REPORT EXAM: XR TOE(S) 2+V RT HISTORY: right great toe pain, Hit right 1st toe twice. Right 1st toe pain. TECHNIQUE: 3 views of the right hallux PRIORS: None. FINDINGS: There is no radiographic evidence of definite acute fracture or dislocation. No evidence of osseous lesion. Joint spaces are maintained. There is no evidence of significant degenerative arthrosis. IMPRESSION: No acute skeletal pathology - Medical Decision Making Patient was examined by this provider in fast track. Vitals are stable and patient is in no acute distress. Patient given analgesics while in the ER. Obtained a x-ray of right toes. X-rays dictated by radiologist with no acute skeletal pathology. Patient informed of results. Patient given crutches with education. Start naproxen and tramadol for pain related to muscle sprain. Follow up with PCP in 2-3 days. Critical care attestation.: If time is entered above; I have spent that time in minutes in the direct care of this critically ill patient, excluding procedure time. ED Disposition Clinical Impression: Sprain, IP, toe, great, right Qualifiers: Encounter type: initial encounter Qualified Code(s): S93.511A - Sprain of interphalangeal joint of right great toe, initial encounter Pain of great toe Qualifiers: Laterality: right Qualified Code(s): M79.674 - Pain in right toe(s) Disposition: DC- TO HOME OR SELFCARE Is pt being admited?: No Does the pt Need Aspirin: No Condition: Stable Instructions: Foot Sprain (ED), Arthralgia (ED) Additional Instructions: Rest Use ice or heat on affected area for 20 minutes and off for 2 hours. Take pain medication as needed for pain. Follow up with Primary Care Provider in 2-3 days. Prescriptions: Naproxen [Naprosyn] 500 mg PO TID #12 tablet traMADol [Ultram 50 MG tab] 50 mg PO Q6HR PRN #8 tablet PRN Reason: Pain Referrals: [facility] [Outside] - 3-5 Days [facility] [Outside] - 3-5 Days FAINA GUZMAN MD [Staff Physician] - 3-5 Days Forms: Work/School Release Form(ED) Time of Disposition: 19:10
--- NOTE | 2018-07-11 18:52 | XRay Report ---
FINAL REPORT EXAM: XR TOE(S) 2+V RT HISTORY: right great toe pain, Hit right 1st toe twice. Right 1st toe pain. TECHNIQUE: 3 views of the right hallux PRIORS: None. FINDINGS: There is no radiographic evidence of definite acute fracture or dislocation. No evidence of osseous lesion. Joint spaces are maintained. There is no evidence of significant degenerative arthrosis. IMPRESSION: No acute skeletal pathology
== END 2018-07-11 19:34 | disposition home or self-care (01) ==
LOC: ED 16:08
DX: S93.511A Sprain of interphalangeal joint of right great toe, initial encounter (principal); I10 Essential (primary) hypertension; E66.9 Obesity, unspecified; Z90.49 Acquired absence of other specified parts of digestive tract; Z91.040 Latex allergy status; Z91.013 Allergy to seafood

== ENCOUNTER 2019-08-10 08:52 | Emergency (ER) | payer SELFPAY ==
[2019-08-10] MEDS ORDERED: KETOROLAC 60 MG/2 ML INJ IM ONE (09:36)
[2019-08-10] MEDS ORDERED: DEXAMETHASONE 4 MG TAB PO ONE (09:37)
[2019-08-10] MEDS ORDERED: IPRATROPIUM/ALBUTEROL SULFATE 3 ML AMPUL.NEB IH ONE (09:37)
--- NOTE | 2019-08-10 09:42 | Emergency Department Report ---
HPI - General Chief Complaint: Chest Pain Time Seen by Provider: 08/10/19 09:18 - HPI HPI: 29-year-old Lauren female presents to the emergency department with a complaint of a 3 day history of left-sided body pain, including her chest. Just complains of some swelling to the left side of the neck, just below the ear. She has a past medical history of asthma and is a tobacco smoker. She has not taken anything for her symptoms prior to arrival today. No recent travel or sick contacts at home. She denies any fever, lower extremity swelling, back pain. She does not have a primary care physician. ED Past Medical Hx - Past Medical History Previous Medical History?: Yes Hx Hypertension: Yes (PIH) Hx Diabetes: No Hx Deep Vein Thrombosis: No Hx Renal Disease: (PIH) Hx Sickle Cell Disease: No Hx Seizures: No Hx Asthma: Yes Hx COPD: No Hx HIV: No Additional medical history: OBESITY - Surgical History Past Surgical History?: Yes Hx Cholecystectomy: Yes - Social History Smoking Status: Current Every Day Smoker Substance Use Type: None - Medications Home Medications: Home Medications Medication Instructions Recorded Confirmed Last Taken Type Pnv 29-1 Tablet 1 tab PO DAILY 02/14/18 02/14/18 1 Day Ago History ~02/13/18 Ibuprofen 800 mg PO Q6HR #30 tablet 02/16/18 Unknown Rx oxyCODONE /ACETAMINOPHEN [Percocet 1 tab PO Q4HR #30 tab 02/16/18 Unknown Rx 5/325] NIFEdipine XL [Procardia Xl] 30 mg PO QDAY #30 tablet 02/19/18 Unknown Rx Naproxen [Naprosyn] 500 mg PO TID #12 tablet 07/11/18 Unknown Rx traMADoL [Ultram 50 MG tab] 50 mg PO Q6HR PRN #8 tablet 07/11/18 Unknown Rx Amlodipine Besylate [Norvasc] 5 mg PO QDAY #30 tablet 07/31/18 Unknown Rx Cephalexin [Keflex] 500 mg PO QID #28 capsule 07/31/18 Unknown Rx HYDROcodone/ACETAMINOPHEN [[place] 1 each PO Q6HR PRN #12 tablet 07/31/18 Unknown Rx 5-325 Tablet] ALBUTEROL Inhaler (OR & NICU) 2 puff IH QID PRN #1 inh 08/10/19 Unknown Rx [ProAir HFA Inhaler] metFORMIN [Glucophage] 500 mg PO BID #28 tablet 08/10/19 Unknown Rx ED Review of Systems ROS: Stated complaint: CHEST/STOMACH PAIN Other details as noted in HPI Comment: All other systems reviewed and negative Constitutional: denies: chills, fever Eyes: denies: eye pain, vision change ENT: denies: ear pain, throat pain Respiratory: wheezing. denies: cough Cardiovascular: chest pain. denies: edema Gastrointestinal: denies: abdominal pain, vomiting Genitourinary: denies: dysuria, discharge Musculoskeletal: myalgia Skin: denies: rash, change in color Neurological: denies: headache, weakness Physical Exam - Physical Exam Vital Signs: Vital Signs 08/10/19 09:04 Temperature 98.3 F Pulse Rate 107 H Respiratory 18 Rate Blood Pressure 163/102 [Right] O2 Sat by Pulse 100 Oximetry Physical Exam: GENERAL: The patient is well-developed well-nourished. HENT: Normocephalic. Atraumatic. Patient has moist mucous membranes. EYES: Extraocular motions are intact. Pupils equal reactive to light bilaterally. NECK: Supple. Trachea is midline. There is a tender but mobile nodule just below the left ear that appears consistent with a lymph node. CHEST/LUNGS: Mild expiratory wheezing. No tachypnea or accessory muscle use. There is no respiratory distress noted. Chest pain is reproducible to palpation of the chest wall but no crepitus or deformity. HEART/CARDIOVASCULAR: Regular. There is no tachycardia. There is no murmur. ABDOMEN: Abdomen is soft, nontender. Patient has normal bowel sounds. Morbidly obese habitus. SKIN: Skin is warm and dry. NEURO: The patient is awake, alert, and oriented. The patient is cooperative. The patient has no focal neurologic deficits. Normal speech. MUSCULOSKELETAL: There is no tenderness or deformity. There is no evidence of acute injury. ED Course Vital Signs 08/10/19 09:04 Temperature 98.3 F Pulse Rate 107 H Respiratory 18 Rate Blood Pressure 163/102 [Right] O2 Sat by Pulse 100 Oximetry ED Medical Decision Making - Lab Data Result diagrams: 08/10/19 09:54 08/10/19 09:54 - EKG Data -: EKG Interpreted by Me EKG shows normal: sinus rhythm, axis, intervals, QRS complexes, ST-T waves Rate: tachycardia (bpm) - EKG Data When compared to previous EKG there are: previous EKG unavailable Interpretation: normal EKG - Radiology Data Radiology results: image reviewed interpreted by me: Chest x-ray does not show any acute process. There are no pleural effusions, obvious pneumonia and there is no pneumothorax. - Medical Decision Making This patient presents to the emergency department with complaint of some left- sided body pain, including her chest, some wheezing and some swelling below the left ear at the neck. The area below the ear appears to be a lymph node as it is tender mobile without fluctuance and there are no other signs of infection. Chest x-ray did not show any acute process including any pneumothorax, pneumonia, pleural effusions. Patient's labs were mostly unremarkable except for hyperglycemia with a blood sugar of about 360. This appears consistent with some new onset diabetes. There is no elevation in the anion gap and she does not appear to be in diabetic ketoacidosis. An IV was placed and she was given some IV fluid and a dose of insulin and her blood sugar came down to about 250. We discussed dietary changes such as staying away from sugar, carbohydrates and starches. The patient was placed on metformin and keep a blood sugar log. She has been given multiple referrals for primary care. Regarding the other symptoms, EKG did not show any ST elevation NE or dysrhythmia. Chest pain is reproducible to palpation and appears consistent with some costochondritis or chest wall pain. She was given a dose of Toradol for this discomfort with some improvement. The patient was also given a breathing treatment for a mild expiratory wheeze and was prescribed an albuterol inhaler. - Differential Diagnosis asthma, costochondritis, pneumonia, bronchitis Critical Care Time: No Critical care attestation.: If time is entered above; I have spent that time in minutes in the direct care of this critically ill patient, excluding procedure time. ED Disposition Clinical Impression: Costochondritis, Diabetes mellitus, new onset Asthma exacerbation Qualifiers: Asthma severity: unspecified severity Asthma persistence: unspecified Qualified Code(s): J45.901 - Unspecified asthma with (acute) exacerbation Hypertension Qualifiers: Hypertension type: essential hypertension Qualified Code(s): I10 - Essential (primary) hypertension Disposition: - TO HOME OR SELFCARE Is pt being admited?: No Condition: Stable Instructions: Asthma (ED), Costochondritis (ED), Diabetes Mellitus Type 2 in Adults (ED), Hypertension (ED) Additional Instructions: Please follow-up with a primary care physician in the next few days. Return to the emergency Department with any worsening of your symptoms or any acute distress. I'm starting you on a medication for your diabetes called metformin. This taken twice daily by mouth. Try and stay away from foods that are high in sugar, carbohydrates, starches. Try and keep a blood sugar log. Prescriptions: metFORMIN [Glucophage] 500 mg PO BID #28 tablet ALBUTEROL Inhaler (OR & NICU) [ProAir HFA Inhaler] 2 puff IH QID PRN #1 inh PRN Reason: Shortness Of Breath Referrals: MAO TEJEDA MD [Staff Physician] - 2-3 Days LB HUFFMAN MD [Staff Physician] - 2-3 Days [facility] [Outside] - 2-3 Days Time of Disposition: 12:49
--- NOTE | 2019-08-10 09:42 | XRay Report ---
CHEST 1 VIEW 08/10/2019 9:26 AM INDICATION / CLINICAL INFORMATION: Chest Pain. COMPARISON: None available. FINDINGS: SUPPORT DEVICES: None. HEART / MEDIASTINUM: No significant abnormality. LUNGS / PLEURA: No significant pulmonary or pleural abnormality. No pneumothorax. ADDITIONAL FINDINGS: No significant additional findings. IMPRESSION: 1. No acute findings. Signer Name: Jeromy Garner MD Signed: 08/10/2019 9:38 AM Workstation Name: [id number]
[2019-08-10 10:15] LABS: Basophils % (Auto) 0.7 % (0.0-1.8); Eosinophils # (Auto) 0.3 K/mm3 (0.0-0.4); Eosinophils % (Auto) 4.7 % (0.0-4.3); Hematocrit 38.7 % (30.3-42.9); Hemoglobin 13.1 gm/dl (10.1-14.3); Lymphocytes % (Auto) 28.4 % (13.4-35.0); Mean Corpuscular HGB Conc 34 % (30-34); Mean Corpuscular Volume 87 fl (79-97); Monocytes # (Auto) 0.4 K/mm3 (0.0-0.8); Monocytes % (Auto) 5.9 % (0.0-7.3); Platelet Count 296 K/mm3 (140-440); Red Blood Count 4.44 M/mm3 (3.65-5.03)
[2019-08-10 10:31] LABS: BUN/Creatinine Ratio 12; Blood Urea Nitrogen 7 mg/dL (7-17); Calcium 8.7 mg/dL (8.4-10.2); Hemolysis Index 13
[2019-08-10] MEDS ORDERED: INSULIN REGULAR, HUMAN 100 UNITS/1 ML IV ONE (10:41)
[2019-08-10] MEDS ORDERED: SODIUM CHLORIDE 0.9% 500 ML 500 ML IV ONE (10:41)
[2019-08-10 13:02] VITALS: BP 130/90
[2019-08-10] MEDS ORDERED: ACETAMINOPHEN 325 MG TAB PO ONE (13:42)
== END 2019-08-10 14:04 | disposition home or self-care (01) ==
LOC: ED 08:52
DX: M94.0 Chondrocostal junction syndrome [Tietze] (principal); E11.9 Type 2 diabetes mellitus without complications; J45.901 Unspecified asthma with (acute) exacerbation; I10 Essential (primary) hypertension; E66.9 Obesity, unspecified; F17.200 Nicotine dependence, unspecified, uncomplicated; Z90.49 Acquired absence of other specified parts of digestive tract; Z79.899 Other long term (current) drug therapy; Z91.040 Latex allergy status; Z91.013 Allergy to seafood
CPT/HCPCS: 36415; 71045; 80048; 82962; 84484; 85025; 93005; 93010; 94640; 96372; 96374; 99284; J1885; J7040; J8540; J1815